=== PATIENT | male | born 2000 | race Two or more races ===

== ENCOUNTER 2023-11-29 14:01 | Emergency (ER) | payer MEDICAID, SELFPAY ==
--- NOTE | ~2023-11-29 | XR_ITS ---
EXAMINATION: XR CHEST CLINICAL INFORMATION: Dyspnea. COMPARISON: None available. TECHNIQUE: Frontal view of the chest was obtained. FINDINGS: The heart is normal in size. The left lung is clear. There is a subtle right lower lobe opacity for which developing infection cannot be excluded. There is no pleural effusion or pneumothorax. No acute osseous abnormality. XR/XR chest 1V IMPRESSION: Subtle right lower lobe opacity for which developing infection cannot be excluded. Electronically signed by: Enmanuel Lopez DO 11/29/2023 11:10 PM EDT
--- NOTE | 2023-11-29 14:09 | ECG_ITS ---
Test Reason : CP Blood Pressure : / mmHG Vent. Rate : 135 BPM Atrial Rate : 135 BPM P-R Int : 130 ms QRS Dur : 080 ms QT Int : 302 ms P-R-T Axes : 043 077 -21 degrees QTc Int : 453 ms Sinus tachycardia Abnormal QRS-T angle, consider primary T wave abnormality Abnormal ECG No previous ECGs available Referred By: Generic ED Physician Electronically Signed By:AMPARO URIBE
[2023-11-29 14:34] VITALS: BP 123/76; PULSE 113; RESP 16; TEMP 36.8; O2SAT 99; BMI 20.7
--- NOTE | 2023-11-29 14:34 | ED.GENADULT ---
HPI - General Adult General Chief complaint: Chest Pain Stated complaint: chest and abd pain Time Seen by Provider: 11/29/23 22:44 Source: patient and old records reviewed Mode of arrival: ambulatory Limitations: no limitations History of Present Illness ED Provider: CANDICE BENDER narrative: 23 yo male hx of anxiety has not been on his zoloft or atarax in a couple of months or spoken to his therapist. He notes over the past 4 days he has central chest pain, anxiety, dyspnea and he has some loose stools. No fevers, URI symptoms, travel or procedures. He notes he is under a lot of stress right now. He is able to eat and drink. He has no other complaints. He hasn't had symptoms this bad in the past. MD complaint: chest pain Onset (ago): day(s) (4) Location: chest and abdomen Radiation: non-radiation Severity: moderate Quality: aching Pain Consistency: intermittent Relieving factors: none Exacerbating factors: other (stress) Associated symptoms: shortness of breath Treatments prior to arrival: none Related Data Previous Rx's ?Medication ?Instructions ?Recorded amoxicillin 875 mg-potassium 1 tab PO BID #14 tabs 11/29/23 clavulanate 125 mg tablet hydroxyzine HCl 25 mg tablet 25 mg PO Q8H PRN anxiety #60 tabs 11/29/23 Allergies Allergy/AdvReac Type Severity Reaction Status Date / Time No Known Allergies Allergy Verified 11/29/23 14:35 Review of Systems Review of Systems: Constitutional : No Weight loss, No Fever, No Chills ENT/Mouth : No sore throat, No Rhinorrhea Eyes: No Eye Pain, No Swelling Cardiovascular : pos Chest Pain, pos SOB, no Dyspnea on Exertion, No Orthopnea, No Edema, No Palpitations Respiratory : No Cough, No Sputum Gastrointestinal : no Nausea, No Vomiting, No Diarrhea, No abdominal Pain, No Hematochezia, No Melena Genitourinary : No Dysuria, No Urinary Frequency Musculoskeletal : No joint pain, No Myalgias, No Joint Swelling Skin : No Skin Lesions, No rash Neuro : No Weakness, No Numbness, No Dizziness, No Headache Psych : pos Anxiety/Panic, No Depression Heme/Lymph: No Bruising, No Lymphadenopathy Endocrine : No Polyuria, No Polydipsia All other systems reviewed and are negative [facility] Past Medical History Attestation statement: The following information was validated with the patient. Source: old records reviewed Medical History Anxiety Social History Social History (Updated 11/29/23 @ 22:49 by Malaika Talamantes DO) Patient Tobacco Use Status: Never used Tobacco Advance Directives: No Advance Directives Information Provided: No Physical Exam ED Vital Signs: Vital Signs - 24 hr 11/29/23 14:34 Temperature 98.2 F Pulse Rate 113 H Respiratory Rate 16 Blood Pressure 123/76 Pulse Oximetry 99 Oxygen Delivery Method Room Air BMI result Body Mass Index 20.7 Appearance: Alert. Oriented X3. No acute distress. Eyes: Pupils equal, round and reactive to light. ENT: Pharynx normal. Neck: Normal inspection. Neck supple. CVS: Normal heart rate and rhythm. Pulses normal. Respiratory: No respiratory distress. Breath sounds normal. Abdomen: Soft and nontender. Skin: Skin warm and dry. Normal skin color. Normal skin turgor. Extremities: No lower extremity edema. No calf ttp Neuro: Oriented X 3. No motor deficit. No sensory deficit. Course Course Course Narrative: RME performed by Yu Ramachandran PA-C. Patient is a 23 year old assigned male at presenting to the emergency department with chest and abdominal pain. Patient states over the last 4 days he has had central chest pain and epigastric pain. Detailed physical exam and review of systems are deferred to the client advisor. EKG, labs, and swabs ordered. Patient placed back in the waiting room pending room availability and results. Medical Decision Making Medical Decision Making [facility] Narrative: 23 yo male with PMH of anxiety here with c/o chest pain feeling anxiety and short of breath he denies URI symptoms he is overall not toxic. No signs of DVT, distal pulses intact low prob VTE, given pulses intact and atypical pain doubt dissection. At this time will need trop, EKG, CXR, ddimer if negative restart him on his medications Differential Diagnosis Differential Diagnoses: The differential diagnosis associated with the presentation includes anxiety, atypical chest pain, low susp VTE Admission/Observation Consideration of admission/observation: Escalation of care including admission/observation considered negative workup no acute findings stable for DC possible early pneumonia Lab Data [facility] Lab Attestation statement: I reviewed the patient's lab results. 11/29/23 15:14 11/29/23 15:14 Labs: Lab Results 11/29/23 11/29/23 Range/Units 15:14 23:10 WBC 9.7 (4.8-10.8) X10*3/uL RBC 4.61 (4.60-5.80) X10*6/uL Hgb 14.1 (14.0-18.0) g/dl Hct 40.6 L (42.0-52.0) % MCV 88.1 (80.0-98.0) fL MCH 30.6 (27.0-33.0) pg MCHC 34.7 (31.0-36.0) g/dl RDW 11.9 (11.0-16.0) % Plt Count 192 (160-400) X10*3/uL MPV 10.3 (9.4-12.4) fL Immature Gran % (Auto) 0.7 H (0.0-0.4) % Neut % (Auto) 76.0 H (45-73) % Lymph % (Auto) 17.0 L (20-40) % Rooks % (Auto) 5.9 (2-11) % Eos % (Auto) 0.1 (0-4) % Baso % (Auto) 0.3 (0-2) % Lymph # (Auto) 1.7 (1.2-4.9) X10*3/uL [place]ook[place] # (Auto) 0.6 (0.1-1.2) X10*3/uL Eos # (Auto) 0.0 (0.0-0.4) X10*3/uL Baso # (Auto) 0.0 (0.0-0.2) X10*3/uL Abs Immat Gran (auto) 0.07 H (0.00-0.03) X10*3/uL Absolute Neuts (auto) 7.4 (2.0-8.3) x10*3/uL Absolute Nucleated RBC 0.000 (0.0-0.012) X10*3/uL Nucleated RBC % (auto) 0.0 (0.0-0.2) /100WBC D-Dimer High Sensitivty < 150 NG/ML Sodium 142 (135-145) mmol/L Potassium 4.2 (3.3-5.1) mmol/L Chloride 107 (96-108) mmol/L Carbon Dioxide 26 (22-29) mmol/L Anion Gap 13 (12-20) BUN 12 (9-16) mg/dL Creatinine 1.04 (0.5-1.4) mg/dL Estim Creat Clear Calc 88.2 Estimated GFR > 60 Random Glucose 125 H (60-115) mg/dL Calcium 10.3 H (8.4-10.2) mg/dL Magnesium 1.8 (1.6-2.6) mg/dL Total Bilirubin 0.7 (0.0-1.0) mg/dL AST 12 (5-37) U/L ALT 8 (0-40) U/L Alkaline Phosphatase 54 (39-117) U/L Troponin I High Sens < 2.7 (<3.5-35.0) ng/L Total Protein 8.2 H (6.5-8.0) g/dL Albumin 5.1 H (3.5-5.0) g/dL Lipase 10 (8-78) U/L Influenza Type A (PCR) NEGATIVE (Negative) Influenza Type B (PCR) NEGATIVE (Negative) RSV RNA Qual (PCR) NEGATIVE (Negative) SARS-CoV-2 RNA (RT-PCR) NEGATIVE (Negative) Independent Interpretation I performed an independent interpretation of an: EKG and Plain X-Ray (opacity RLL) Interpretation: Rate: 135 Rhythm: sinus tachycardia [place]: normal Normal P waves. Normal RAMA. Normal QRS complex. ST T wave : normal no SHIRLEY qTC: 453 prior studies: no acute ischemia The study has been interpreted contemporaneously by me. . Radiology Impression Discussion of test interpretation with radiology: I have reviewed the radiologist's reading. External Record Review External record reviewed: Outpatient record Prescription Management I considered prescription management with: Antibiotic and Other Discharge Plan Discharge Clinical Impression: Atypical chest pain, Anxiety Pneumonia Qualifiers: Pneumonia type: due to unspecified organism Laterality: right Lung location: lower lobe of lung Qualified Code(s): J18.9 - Pneumonia, unspecified organism Patient Disposition: Home, Self-Care Instructions: Chest Pain (ED), Anxiety (ED), Pneumonia (ED) Additional Instructions: labs, EKG reassuring small focal area of possible early pneumonia on right lung - finish antibiotics follow up with your doctor and therapist return for any worsening symptoms or concerns remember with any new medication if you have thoughts of self harm seek immediate medical care On amoxicillin-clavulanate, softer bowel movements are to be expected. Call your provider if you move your bowels more than 4 times a day, your bowel movements are almost all liquid, or you get a rash.? Prescriptions: New amoxicillin-pot clavulanate 875-125 mg tablet 1 tab PO BID Qty: 14 0RF hydroxyzine HCl 25 mg tablet 25 mg PO Q8H PRN (Reason: anxiety) Qty: 60 1RF Stand Alone Forms: Work/School Release Print Language: Prydeinig
[2023-11-29 15:23] LABS: MANUAL DIFF FLAG NO
[2023-11-29 15:31] LABS: Basophils Percent Auto 0.3 % (0-2); Eosinophils Percent Auto 0.1 % (0-4); Hematocrit 40.6 % (42.0-52.0); Hemoglobin 14.1 g/dl (14.0-18.0); Imm Gran Abs Auto 0.07 X10*3/uL (0.00-0.03); Imm Gran Pct Auto 0.7 % (0.0-0.4); Lymphocytes Absolute Auto 1.7 X10*3/uL (1.2-4.9); Mean Corpuscular HGB Conc 34.7 g/dl (31.0-36.0); Mean Corpuscular Hemoglobin 30.6 pg (27.0-33.0); Mean Corpuscular Volume 88.1 fL (80.0-98.0); Mean Platelet Volume 10.3 fL (9.4-12.4); Monocytes Absolute Auto 0.6 X10*3/uL (0.1-1.2); Monocytes Percent Auto 5.9 % (2-11); Neutrophils Absolute Auto 7.4 x10*3/uL (2.0-8.3); Platelet Count 192 X10*3/uL (160-400); Red Blood Count 4.61 X10*6/uL (4.60-5.80); Red Cell Distribution Width 11.9 % (11.0-16.0); White Blood Count 9.7 X10*3/uL (4.8-10.8)
[2023-11-29 15:43] LABS: Alanine Aminotransferase 8 U/L (0-40); Albumin Level 5.1 g/dL (3.5-5.0); Alkaline Phosphatase 54 U/L (39-117); Anion Gap 13 (12-20); Aspartate Amino Transferase 12 U/L (5-37); Bilirubin Total 0.7 mg/dL (0.0-1.0); Blood Urea Nitrogen 12 mg/dL (9-16); Calcium 10.3 mg/dL (8.4-10.2); Carbon Dioxide 26 mmol/L (22-29); Chloride 107 mmol/L (96-108); Creatinine Clr Calc Pharmacy 88.2; Estimated Glomerular Filt Rate > 60; Glucose Random 125 mg/dL (60-115); Lipase 10 U/L (8-78); Magnesium 1.8 mg/dL (1.6-2.6); Potassium 4.2 mmol/L (3.3-5.1); Sodium 142 mmol/L (135-145); Total Protein 8.2 g/dL (6.5-8.0)
[2023-11-29 15:57] LABS: Troponin-I High Sensitivity < 2.7 ng/L (<3.5-35.0)
[2023-11-29 16:17] LABS: Influenza A PCR NEGATIVE (Negative); Influenza B PCR NEGATIVE (Negative); Resp Syncy Virus RNA Qual PCR NEGATIVE (Negative); SARS COV2 PCR INHOUSE NEGATIVE (Negative)
[2023-11-29 23:28] LABS: D Dimer High Sensitivity < 150 NG/ML
[2023-11-29] MEDS: Amoxicillin/Potassium Clav 875 MG TABLET PO (23:47)
[2023-11-29] MEDS: hydrOXYzine HCL 50 MG TABLET PO (23:47)
[2023-11-29 23:48] VITALS: BP 111/68; PULSE 80; RESP 19; TEMP 36.8; O2SAT 96
[2023-11-29 23:51] VITALS: BP 111/68; PULSE 80; RESP 19; TEMP 36.8; O2SAT 96
== END 2023-11-29 23:52 | disposition home or self-care (01) ==
PROVIDERS: Physician Assistant Medical; Emergency Provider Emergency Medicine
DX: J18.9 Pneumonia, unspecified organism (principal); R07.9 Chest pain, unspecified; F41.9 Anxiety disorder, unspecified; R06.00 Dyspnea, unspecified; R10.9 Unspecified abdominal pain; Z03.818 Encounter for observation for suspected exposure to other biological agents ruled out
CPT/HCPCS: 0241U; 36415; 71045; 80053; 83690; 83735; 84484; 85025; 85379; 93005; 99283

== ENCOUNTER 2023-12-20 11:45 | Emergency (ER) | payer MEDICAID, SELFPAY ==
[2023-12-20 11:59] VITALS: BP 114/69; PULSE 135; RESP 20; TEMP 36.5; O2SAT 99; BMI 22.0
--- NOTE | 2023-12-20 12:03 | ED_ITS ---
HPI - Male Genitourinary General Chief complaint: Back Pain/Injury Stated complaint: R flank pain Time Seen by Provider: 12/20/23 13:59 Source: patient Mode of arrival: ambulatory Limitations: no limitations History of Present Illness ED Provider: Cristobal Nelson PA-C HPI Narrative: 23 yo male presenting to the ER for evaluation of right flank pain for the last 3 days. Pain comes and goes, worse with movement. No injury or heavy lifting. He denies any radiation of the pain. No N/V/D, abdominal pain, hematuria, urgency or frequency. He has had intermittent clear penile discharge after urination for the last month. sexually active with 1 partner and not concerned for STI. he reports some relief with exedrin. no fever or chills. MD Complaint: other (flank pain) Onset (ago): day(s) (3) Duration: intermittent Location: right flank Severity: severe Severity scale (1-10): 8 Quality: aching Relieving factors: medication Exacerbating factors: palpation and movement Associated symptoms: Reports discharge Related Data Sexually active: Yes Previous Rx's ?Medication ?Instructions ?Recorded amoxicillin 875 mg-potassium 1 tab PO BID #14 tabs 11/29/23 clavulanate 125 mg tablet hydroxyzine HCl 25 mg tablet 25 mg PO Q8H PRN anxiety #60 tabs 11/29/23 cyclobenzaprine 10 mg tablet 10 mg PO TID PRN muscle spasm #10 12/20/23 tabs ibuprofen 600 mg tablet 600 mg PO Q8H PRN pain #14 tabs 12/20/23 lidocaine 5 % topical patch 1 patch topical DAILY #15 ea 12/20/23 Allergies Allergy/AdvReac Type Severity Reaction Status Date / Time No Known Allergies Allergy Verified 12/20/23 12:04 Review of Systems 2 Review of Systems: Yes all other systems are reviewed and are negative [facility] Past Medical History Medical History Anxiety Social History Social History (Updated 11/29/23 @ 22:49 by Malaika Talamantes DO) Patient Tobacco Use Status: Never used Tobacco Advance Directives: No Advance Directives Information Provided: No Do you have a plan to hurt others: No Plan Physical Exam 2 Vital Signs: Vital Signs: Last Vital Signs Temp 97.8 F 12/20/23 14:22 Pulse 99 12/20/23 14:22 Resp 16 12/20/23 14:22 BP 106/67 12/20/23 14:22 Pulse Ox 96 12/20/23 14:22 O2 Del Method Room Air 12/20/23 14:22 BMI result Body Mass Index 22.0 Appearance: Alert. Oriented X3. No acute distress. Head: normocephalic, atraumatic. Eyes: Pupils equal, round and reactive to light. ENT: Pharynx normal. No tonsillar swelling or exudate. Neck: Normal inspection. Neck supple. CVS: Normal heart rate and rhythm. Pulses normal. Respiratory: No respiratory distress. Breath sounds normal. Abdomen: Soft and nontender. +BS x4. +CVA tenderness on the right side Skin: Skin warm and dry. Normal skin color. Normal skin turgor. No rashes. Extremities: No lower extremity edema. No joint swelling. Neuro/psych: Oriented X 3. No motor deficit. No sensory deficit. CN II-XII intact. Normal speech and cognition. Course Course Course Narrative: This is an RME: Additional HPI, ROS, PE not included below will be deferred to primary provider. RME assessment and note performed by: Gabrielle Weir PA-C This is a [id number]-male who presents to the ER with complaints of right flank pain x 3 days. He also admits to having clear discharge from his penis for ?awhile?. Denies any on protected sex. History of UTI 3 years ago. No urinary symptoms. No injury, heavy lifting, or falls. Patient tachycardic at 135bpm patient reports that he walked here. No chest pain or shortness of breath. Plan: labs, ua, further ER eval needed Medications Administered Discontinued Medications Generic Name Dose Route Start Last Admin Trade Name Freq PRN Reason Stop Dose Admin Acetaminophen 975 mg 12/20/23 15:08 12/20/23 15:13 Acetaminophen 325 Mg Tablet PO 12/20/23 15:09 975 mg ONCE ONE Administration Cyclobenzaprine HCl 10 mg 12/20/23 15:08 12/20/23 15:14 Cyclobenzaprine Hcl 10 Mg Tablet PO 12/20/23 15:09 10 mg ONCE ONE Administration Lidocaine 1 patch 12/20/23 15:08 12/20/23 15:14 Lidocaine 4 % Patch Adh..Patch TRANSDERMA 12/20/23 15:09 1 patch ONCE ONE Administration Protocol Medical Decision Making Medical Decision Making [facility] Narrative: 23 yo male presenting with right flank pain x3 days. no urinary symptoms but reports occasional clear penile discharge. no new sexual partners. tachycardic on arrival. No N/V/D or abdominal pain. repeat VS are improved without intervention. normal renal function, UA negative for infection and blood. lower suspicion for kidney stone treated for MSK pain with flexeril and lidoderm with improvement in his pain comfortable w/ discharge home with treatment for muscular back pain. he would like to defer STI treatment for now, will call if positive. return precautions discussed. Differential Diagnosis Differential Diagnoses: The differential diagnosis associated with the presentation includes kidney stone, pyelonephritis, STI, MSK pain Lab Data [facility] Lab Attestation statement: I reviewed the patient's lab results. no leukocytosis, normal renal function, normal UA 12/20/23 12:21 12/20/23 12:21 Labs: Lab Results 12/20/23 12/20/23 Range/Units 12:21 14:49 WBC 10.1 (4.8-10.8) X10*3/uL RBC 4.41 L (4.60-5.80) X10*6/uL Hgb 13.4 L (14.0-18.0) g/dl Hct 38.7 L (42.0-52.0) % MCV 87.8 (80.0-98.0) fL MCH 30.4 (27.0-33.0) pg MCHC 34.6 (31.0-36.0) g/dl RDW 12.6 (11.0-16.0) % Plt Count 208 (160-400) X10*3/uL MPV 9.4 (9.4-12.4) fL Immature Gran % (Auto) 0.4 (0.0-0.4) % Neut % (Auto) 76.3 H (45-73) % Lymph % (Auto) 14.0 L (20-40) % [place] % (Auto) 8.7 (2-11) % Eos % (Auto) 0.2 (0-4) % Baso % (Auto) 0.4 (0-2) % Lymph # (Auto) 1.4 (1.2-4.9) X10*3/uL [place] # (Auto) 0.9 (0.1-1.2) X10*3/uL Eos # (Auto) 0.0 (0.0-0.4) X10*3/uL Baso # (Auto) 0.0 (0.0-0.2) X10*3/uL Abs Immat Gran (auto) 0.04 H (0.00-0.03) X10*3/uL Absolute Neuts (auto) 7.7 (2.0-8.3) x10*3/uL Absolute Nucleated RBC 0.000 (0.0-0.012) X10*3/uL Nucleated RBC % (auto) 0.0 (0.0-0.2) /100WBC Sodium 140 (135-145) mmol/L Potassium 4.3 (3.3-5.1) mmol/L Chloride 105 (96-108) mmol/L Carbon Dioxide 26 (22-29) mmol/L Anion Gap 13 (12-20) BUN 11 (9-16) mg/dL Creatinine 1.00 (0.5-1.4) mg/dL Estim Creat Clear Calc 106.8 Estimated GFR > 60 Random Glucose 103 (60-115) mg/dL Calcium 10.1 (8.4-10.2) mg/dL Total Bilirubin 0.6 (0.0-1.0) mg/dL Direct Bilirubin 0.2 (0.0-0.5) mg/dL AST 15 (5-37) U/L ALT 15 (0-40) U/L Alkaline Phosphatase 51 (39-117) U/L Total Protein 7.8 (6.5-8.0) g/dL Albumin 4.8 (3.5-5.0) g/dL Urine Color Yellow Urine Appearance Clear Urine pH 8.5 (5.0-9.0) Ur Specific [place] 1.015 (1.005-1.025) Urine Protein Negative (Neg-Trace) mg/dL Urine Glucose (UA) Negative (Negative) mg/dL Urine Ketones Negative (Negative) mg/dL Urine Blood Negative (Negative) Urine Nitrite Negative (Negative) Ur Leukocyte Esterase Negative (Negative) External Record Review External record reviewed: Outpatient record and Prior outpatient labs Tests considered The following testing was considered but not selected: considered CT scan of the abdomen/pelvis Prescription Management I considered prescription management with: Pain Medication Critical Care Time Critical Care Time Critical Care Time: No Discharge Plan Discharge Clinical Impression: Strain of lumbar region Patient Disposition: Home, Self-Care Instructions: Acute Low Back Pain (ED) Additional Instructions: your lab workup and urine test today were reassuring IF you test positive for gonorrhea or chlamydia we will call you Your pain is most likely due to muscle strain and spasm. Limit bending, lifting or twisting. Use ice several times per day for 20 minutes at a time for the next 48 hours and then change to heat. Take medications as prescribed to help with pain and discomfort. Follow up with your Primary Care Doctor this week. If your pain worsens, if you develop new numbness, tingling, weakness, loss of function or incontinence call 911 or come back to the ER right away for evaluation. Prescriptions: New cyclobenzaprine 10 mg tablet 10 mg PO TID PRN (Reason: muscle spasm) Qty: 10 0RF ibuprofen 600 mg tablet 600 mg PO Q8H PRN (Reason: pain) Qty: 14 0RF lidocaine 5 % adhesive patch,medicated 1 patch topical DAILY Qty: 15 0RF Rx Instructions: leave on most painful area for up to 12 hrs No Action amoxicillin-pot clavulanate 875-125 mg tablet 1 tab PO BID Qty: 14 0RF hydroxyzine HCl 25 mg tablet 25 mg PO Q8H PRN (Reason: anxiety) Qty: 60 1RF Print Language: Singaporean
--- NOTE | 2023-12-20 12:07 | ECG_ITS ---
Test Reason : tachycardia Blood Pressure : / mmHG Vent. Rate : 125 BPM Atrial Rate : 125 BPM P-R Int : 140 ms QRS Dur : 080 ms QT Int : 298 ms P-R-T Axes : 029 070 013 degrees QTc Int : 430 ms Sinus tachycardia Otherwise normal ECG When compared with ECG of 29-NOV-2023 14:09, No significant change was found Referred By: Gabrielle Weir Electronically Signed By:AGUSTIN LOPES
[2023-12-20 12:24] LABS: MANUAL DIFF FLAG NO
[2023-12-20 12:33] LABS: Basophils Percent Auto 0.4 % (0-2); Eosinophils Percent Auto 0.2 % (0-4); Hematocrit 38.7 % (42.0-52.0); Hemoglobin 13.4 g/dl (14.0-18.0); Imm Gran Abs Auto 0.04 X10*3/uL (0.00-0.03); Imm Gran Pct Auto 0.4 % (0.0-0.4); Lymphocytes Absolute Auto 1.4 X10*3/uL (1.2-4.9); Mean Corpuscular HGB Conc 34.6 g/dl (31.0-36.0); Mean Corpuscular Hemoglobin 30.4 pg (27.0-33.0); Mean Corpuscular Volume 87.8 fL (80.0-98.0); Mean Platelet Volume 9.4 fL (9.4-12.4); Monocytes Absolute Auto 0.9 X10*3/uL (0.1-1.2); Monocytes Percent Auto 8.7 % (2-11); Neutrophils Absolute Auto 7.7 x10*3/uL (2.0-8.3); Neutrophils Percent Auto 76.3 % (45-73); Platelet Count 208 X10*3/uL (160-400); Red Blood Count 4.41 X10*6/uL (4.60-5.80); Red Cell Distribution Width 12.6 % (11.0-16.0); White Blood Count 10.1 X10*3/uL (4.8-10.8)
[2023-12-20 12:39] LABS: Alanine Aminotransferase 15 U/L (0-40); Albumin Level 4.8 g/dL (3.5-5.0); Alkaline Phosphatase 51 U/L (39-117); Anion Gap 13 (12-20); Aspartate Amino Transferase 15 U/L (5-37); Bilirubin Direct 0.2 mg/dL (0.0-0.5); Bilirubin Total 0.6 mg/dL (0.0-1.0); Blood Urea Nitrogen 11 mg/dL (9-16); Calcium 10.1 mg/dL (8.4-10.2); Carbon Dioxide 26 mmol/L (22-29); Chloride 105 mmol/L (96-108); Creatinine Clr Calc Pharmacy 106.8; Estimated Glomerular Filt Rate > 60; Glucose Random 103 mg/dL (60-115); Potassium 4.3 mmol/L (3.3-5.1); Sodium 140 mmol/L (135-145); Total Protein 7.8 g/dL (6.5-8.0)
[2023-12-20 14:22] VITALS: BP 106/67; PULSE 99; RESP 16; TEMP 36.6; O2SAT 96
--- NOTE | 2023-12-20 14:23 | PC.NURSE ---
pt a&ox3, [place] [facility] [place] pt c/o rt flank/back pain, took excedrin at home without relief, vss, pt needs to give urine sample, awaiting provider, will continue plan of care
[2023-12-20 14:55] LABS: Appearance Urine Clear; Color Urine Yellow; Glucose Urine UA Negative (Negative); Leukocyte Esterase Urine Negative (Negative); Nitrite Urine Negative (Negative); PH 8.5 (5.0-9.0); Specific Gravity - Urine 1.015 (1.005-1.025); Urine Blood Negative (Negative); Urine Ketones Negative (Negative); Urine Protein Negative (Neg-Trace)
[2023-12-20] MEDS: Acetaminophen 325 MG TABLET 975 MG PO (15:13)
[2023-12-20] MEDS: Lidocaine 4 % Patch ADH..PATCH 1 PATCH TRANSDERMA (15:14)
[2023-12-20] MEDS: Cyclobenzaprine HCl 10 MG TABLET PO (15:14)
--- NOTE | 2023-12-20 15:16 | PC.NURSE ---
pt medicated for 9 rt flank pain
[2023-12-20 16:10] VITALS: BP 108/68; PULSE 98; RESP 16; TEMP 36.6; O2SAT 96
[2023-12-20 16:11] VITALS: BP 108/68; PULSE 98; RESP 16; TEMP 36.6; O2SAT 96
[2023-12-20 16:24] LABS: CT PCR NOT DETECTED (Not Detect.); NG PCR NOT DETECTED (Not Detect.)
== END 2023-12-20 16:12 | disposition home or self-care (01) ==
PROVIDERS: Physician Assistant Medical; Emergency Provider Emergency Medicine
DX: S39.012A Strain of muscle, fascia and tendon of lower back, initial encounter (principal); R00.0 Tachycardia, unspecified; X58.XXXA Exposure to other specified factors, initial encounter; Y93.9 Activity, unspecified; Y92.89 Other specified places as the place of occurrence of the external cause; Y99.8 Other external cause status; Z79.899 Other long term (current) drug therapy
CPT/HCPCS: 36415; 80048; 80076; 81003; 85025; 87491; 87591; 93005; 99283; 99284

== ENCOUNTER → 2023-12-20 12:07 | Outpatient (BNV) | payer MEDICAID, SELFPAY | PROVIDERS: Emergency Provider Emergency Medicine; Visit Provider Internal Medicine | DX: R00.0 Tachycardia, unspecified (principal) | CPT/HCPCS: 93010 ==

== ENCOUNTER 2024-11-26 14:39 | Emergency (ER) | payer MEDICAID, SELFPAY ==
--- NOTE | ~2024-11-26 | XR_ITS ---
CLINICAL HISTORY: cough 1 wk 2 view chest x-ray Comparison: CR/SR - XR CHEST 1 VIEW - 11/29/23 22:38 EDT Findings: The lungs are clear. Normal size heart. No acute fracture. IMPRESSION: 1. No acute findings. This document has been electronically signed by: Nazanin Waters MD on 11/26/2024 15:50:45
--- NOTE | 2024-11-26 14:42 | ECG_ITS ---
Test Reason : CHEST PAIN Blood Pressure : */* mmHG Vent. Rate : 121 BPM Atrial Rate : 121 BPM P-R Int : 132 ms QRS Dur : 84 ms QT Int : 310 ms P-R-T Axes : 45 80 37 degrees QTcB Int : 440 ms Sinus tachycardia Otherwise normal ECG When compared with ECG of 20-Dec-2023 12:10, No significant change was found Referred By: Evette Naylor Electronically Signed By: Deep Up
[2024-11-26 14:58] VITALS: BP 119/73; PULSE 107; RESP 16; TEMP 36.8; O2SAT 98; BMI 20.6
--- NOTE | 2024-11-26 14:58 | ED_ITS ---
HPI - General Adult General Chief complaint: Upper Respiratory Symptoms Stated complaint: CP Time Seen by Provider: 11/26/24 19:54 Source: patient Limitations: no limitations History of Present Illness ED Provider: Maricruz Ellington PA-C HPI narrative: 24-year-old male with a history of asthma presents with cough and cold symptoms x1 week. Associated cough that has dry repetitive, wheezing at times, nasal congestion. Denies fever, chest pain shortness of breath, denies known sick contacts with similar symptoms. Related Data Previous Rx's ?Medication ?Instructions ?Recorded amoxicillin 875 mg-potassium 1 tab PO BID #14 tabs clavulanate 125 mg tablet hydroxyzine HCl 25 mg tablet 25 mg PO Q8H PRN anxiety #60 tabs 11/29/23 cyclobenzaprine 10 mg tablet 10 mg PO TID PRN muscle s pasm #10 12/20/23 tabs ibuprofen 600 mg tablet 600 mg PO Q8H PRN pain #14 t abs 12/20/23 lidocaine 5 % topical patch 1 patch topical DAILY #15 ea 12/20/23 albuterol sulfate 90 mcg/actuation 2 puff inhalation Q 4-6H PRN 11/26/24 aerosol inhaler (Ventolin HFA) shortness of breath or wheezing #6.7 grams prednisone 20 mg tablet 40 mg (2 x 20 mg) PO DAILY # 8 tabs 11/26/24 Allergies Allergy/AdvReac Type Severity Reaction Status Date / Time No Known Allergies Allergy Verified 11/26/24 14:59 Review of Systems Review of Systems: Yes all other systems are reviewed and are negative Constitutional: Constitutional: Denies fatigue and Denies fever(s) ENT: Reports nasal congestion Cardiovascular: Cardiovascular: Denies chest pain and Denies dyspnea Respiratory: Respiratory: Denies chest congestion, Reports cough, Denies dyspnea and Reports wheezing Endocrine: Endocrine: Denies fatigue Allergic/Immunologic: Allergic/Immunologic: Reports wheezing PMFSH Past Medical History Attestation statement: The following information was validated with the patient. Medical History Anxiety Social History Social History (Updated 11/29/23 @ 22:49 by Malaika Talamantes DO) Patient Tobacco Use Status: Never used Tobacco Advance Directives: No Advance Directives Information Provided: No Physical Exam ED Vital Signs: Vital Signs - 24 hr 11/26/24 14:58 Temperature 98.2 F Pulse Rate 107 H Respiratory Rate 16 Blood Pressure 119/73 Pulse Oximetry 98 Oxygen Delivery Method Room Air BMI result Body Mass Index 20.6 Const Other: Alert well-appearing Orientation/consciousness: patient oriented x3 Resp Other: Nonlabored respirations, occasional expiratory wheeze posterior isidro Cardio Other: Normal peripheral perfusion Skin Other: Warm dry no rash Neuro General: patient oriented x3, gait normal, no focal motor deficits and CN's II- XI intact bilaterally Psych Other: Cooperative Course Course Course Narrative: This is a rapid medical exam performed by Johny Naylor NP: Additional HPI, ROS, PE not included below will be deferred to primary provider. Patient is a 24-year-old male presenting to the ED with complaint of congestion, cough, chest pain with coughing x 1 week. Plan: viral swabs Medical Decision Making Medical Decision Making [facility] Narrative: 24-year-old male with a history of asthma presents with cough and cold symptoms x1 week. Associated cough that has dry repetitive, wheezing at times, nasal congestion. Denies fever, chest pain shortness of breath, denies known sick contacts with similar symptoms. Problem: Asthma History: Per patient I have considered the following differential diagnoses: Viral syndrome, asthma exacerbation, bronchitis, pneumonia Plan: Patient here with a viral syndrome with very mild symptoms of asthma. Viral panel negative, chest x-ray negative, we will treat for mild asthma exacerbation I have independently reviewed the following tests: Labs: Viral panel negative CXR: indings: The lungs are clear. Normal size heart. No acute fracture. IMPRESSION: 1. No acute findings. Differential Diagnosis Differential Diagnoses: The differential diagnosis associated with the presentation includes See medical decision-making Admission/Observation Consideration of admission/observation: Escalation of care including admission/observation considered Not applicable Lab Data [facility] Lab Attestation statement: I reviewed the patient's lab results. Labs: Lab Results 11/26/24 Range/Units 15:50 COVID-19 (MARTI) Negative (Negative) COVID-19 Clin Com See Note Influenza Type A (CATHY) Negative (Negative) Influenza Type B (CATHY) Negative (Negative) Influenza A & B Note See Note Radiology Impression Discussion of test interpretation with radiology: I have reviewed the radiologist's reading. Discharge Plan Discharge Clinical Impression: Asthma exacerbation, Viral infection Patient Disposition: Home, Self-Care Instructions: Asthma (ED), Viral Syndrome (ED) Additional Instructions: The chest x-ray was negative for pneumonia, you were tested for COVID and influenza, the viral panel was negative. You likely have yet another respiratory virus has been circulating within the community, causing your asthma exacerbation. See home care instructions. Use your inhaler as needed, take the steroid as directed. Follow up with primary care as needed. Prescriptions: New prednisone 20 mg tablet 40 mg PO DAILY Qty: 8 0RF albuterol sulfate [Ventolin HFA] 90 mcg/actuation HFA aerosol inhaler 2 puff inhalation Q4-6H PRN (Reason: shortness of breath or wheezing) Qty: 6.7 0RF No Action amoxicillin-pot clavulanate 875-125 mg tablet 1 tab PO BID Qty: 14 0RF hydroxyzine HCl 25 mg tablet 25 mg PO Q8H PRN (Reason: anxiety) Qty: 60 1RF cyclobenzaprine 10 mg tablet 10 mg PO TID PRN (Reason: muscle spasm) Qty: 10 0RF ibuprofen 600 mg tablet 600 mg PO Q8H PRN (Reason: pain) Qty: 14 0RF lidocaine 5 % adhesive patch,medicated 1 patch topical DAILY Qty: 15 0RF Rx Instructions: leave on most painful area for up to 12 hrs Stand Alone Forms: Work/School Release Print Language: [place]
--- OUTSIDE RECORDS SUMMARY | 2024-11-26 15:56 | XMS_ITS | Clinical Summary ---
Author Organization [facility] Address [address] [place] [phone] Phone Care Team Providers Care [employer] Travel Counselor Name Role Phone Jevon Doherty MD Primary Care Provider Unavailabl e Immunizations Immunization Administration Dates Next Due DTaP 5 04/16/2004, 2,2000, 001,2000 H1N1 01/28/2009 Hep B, ped/adol 01/07/2001,2000,2000 Hib (PRP-T) 07/01/2001, 1,2000, 001 IPV 04/16/2004, 1,2000, 001 MMR 04/16/2004,04/06/2001 Meningococcal Conj (Menactra) MCV4P 11/10/2012 Pneumococcal Conjugate 2000,2000, Tdap 11/10/2012 Varicella 06/15/2007,07/01/2001 Family History Relation Name Status Comments Half-Brother Alive half brother: A live and well, Alive and well Mother Alive Mother: Alive a nd well Other No family histo ry of CVA (Stroke), No family history of Sudden /AR under age 55, No family history of Heart disease, Family history of Hyperlipidemia Social History Tobacco Use Types Packs/Day Years Used Date Smoking Tobacco: Never Comments:Never smoker Sex and Gender Information Value Date Recorded Sex Assigned at Not on file Legal Sex Male 4:51 PM EDT Gender Identity Not on file Sexual Orientation Not on file Last Filed Vital Signs Vital Sign Reading Time Taken Comments Blood Pressure 93/61 05/12/2013 12:00 AM EST Pulse 86 05/12/2013 12:00 AM EST Temperature 36.8 C (98.3 F) 03/30/2013 12:00 AM EST Respiratory Rate - - Oxygen Saturation - - Inhaled Oxygen Concentration - - Weight 55.5 kg (122 lb 6.4 oz) 05/12/2013 12:00 AM EST Height 161 cm (5' 3.4 ) 05/12/2013 12:00 AM EST Body Mass Index 21.41 05/12/2013 12:00 AM EST Plan of Treatment Health Maintenance Due Date Last Done Comments HPV Vaccines (1 - Male 3-dose series) 2015 DTaP,Tdap,and Td Vaccines (7 - Td or Tdap) 11/10/2022 11/10/2012, 04/16/2004, 09/23/2001, Additional history exists Influenza Vaccines (#1) 2024 COVID-19 Vaccine (1 - season) 2024 Pneumococcal Vaccine Aged Out 2000, 2000, 2000 No longer eligible based on patient's age to complete this topic Hepatitis B Vaccines Completed 01/07/2001, 2000, 2000 HIB Vaccines Completed 07/01/2001, 03/2000, 2000, Additional history exists IPV Vaccines Completed 04/16/2004, 03/2000, 2000, Additional history exists MMR Vaccines Completed 04/16/2004, 04/06/2001 Varicella Vaccines Completed 06/15/2007, 07/01/2001 Meningococcal Vaccine Aged Out 11/10/2012 No neli mabel eligible based on patient's age to complete this topic Hepatitis A Vaccines Aged Out No long er eligible based on patient's age to complete this topic Men B Vaccine Aged Out No longer elig ible based on patient's age to complete this topic Care Teams [employer] Travel Counselor Relationship Specialty Start Date End Date Jevon Doherty MD PCP - General 10/16/16
--- OUTSIDE RECORDS SUMMARY | 2024-11-26 15:56 | XMS_ITS | Encounter Summary ---
Author Organization [facility] Address [address] [place] [address] Phone Care Team Providers Care Clerk Stenographer Name Role Phone Jevon Doherty MD Primary Care Provider Unavailabl e Encounter Details Date Type Department Care Team (Late st Contact Info) Description 10/22/2016 Conversion Encounter [facility] - [address] [id number] Social History Tobacco Use Types Packs/Day Years Used Date Smoking Tobacco: Never Comments:Never smoker Sex and Gender Information Value Date Recorded Sex Assigned at Not on file Legal Sex Male 4:51 PM EDT Gender Identity Not on file Sexual Orientation Not on file documented as of this encounter Plan of Treatment Not on file documented as of this encounter Visit Diagnoses Not on filedocumented in this encounter Care Teams Clerk Stenographer Relationship Specialty Start Date End Date Jevon Doherty MD PCP - General 10/16/16 documented as of this encounter
--- OUTSIDE RECORDS SUMMARY | 2024-11-26 15:56 | XMS_ITS | Encounter Summary ---
Author Organization [facility] Address [address] [place] [phone] Phone Care Team Providers Care Multi Craft Maintenance Technician Name Role Phone Jevon Doherty MD Primary Care Provider Unavailabl e Encounter Details Date Type Department Care Team (Late st Contact Info) Description 06/12/2009 Documentation EM Family Medicine [address] [place] [address] Family Medicine, Physician [facility] [address] [place], [place] [phone] Social History Tobacco Use Types Packs/Day Years Used Date Smoking Tobacco: Never Assessed Sex and Gender Information Value Date Recorded Sex Assigned at Not on file Legal Sex Male 4:51 PM EDT Gender Identity Not on file Sexual Orientation Not on file documented as of this encounter Plan of Treatment Not on file documented as of this encounter Visit Diagnoses Not on filedocumented in this encounter Care Teams Multi Craft Maintenance Technician Relationship Specialty Start Date End Date Jevon Doherty MD PCP - General 10/16/16 documented as of this encounter
--- OUTSIDE RECORDS SUMMARY | 2024-11-26 15:56 | XMS_ITS | Encounter Summary ---
Author Organization [facility] Address [address] [place] [phone] Phone Care Team Providers Care Television Installer Name Role Phone Jevon Doherty MD Primary Care Provider Unavailabl e Encounter Details Date Type Department Care Team (Late st Contact Info) Description 06/18/2010 Documentation EM Family Medicine [address] [place] [address] Family Medicine, Physician [facility] [address] [place], [place] [phone] Social History Tobacco Use Types Packs/Day Years [...] on filedocumented in this encounter Care Teams Television Installer Relationship Specialty Start Date End Date Jevon Doherty MD PCP - General 10/16/16 documented as of this encounter
[2024-11-26 16:17] LABS: IDNOW Serial# 6674DD1D
[2024-11-26 16:18] LABS: COVID-19 Test Negative (Negative)
[2024-11-26 16:22] LABS: IDNOW Serial# 58CA691E; Influenza B2 Negative (Negative)
[2024-11-26 20:35] VITALS: BP 107/66; PULSE 78; RESP 16; TEMP 36.7; O2SAT 97
[2024-11-26 20:36] VITALS: BP 107/66; PULSE 78; RESP 16; TEMP 36.7; O2SAT 97
== END 2024-11-26 20:36 | disposition home or self-care (01) ==
PROVIDERS: Registered Nurse Emergency; Emergency Provider Emergency Medicine; PCP Dentist General Practice
DX: J45.901 Unspecified asthma with (acute) exacerbation (principal); B34.9 Viral infection, unspecified; R07.89 Other chest pain; R05.9 Cough, unspecified; Z11.52 Encounter for screening for COVID-19; Z79.899 Other long term (current) drug therapy
CPT/HCPCS: 71046; 87502; 87635; 93005; 99283; 99284

== ENCOUNTER → 2024-11-26 14:42 | Outpatient (BNV) | payer MEDICAID, SELFPAY | PROVIDERS: Emergency Provider Emergency Medicine; PCP Dentist General Practice; Visit Provider Internal Medicine Cardiovascular Disease | DX: R00.0 Tachycardia, unspecified (principal) | CPT/HCPCS: 93010 ==

== ENCOUNTER → 2024-11-26 14:59 | Outpatient (BNV) | payer MEDICAID, SELFPAY | PROVIDERS: PCP Dentist General Practice; Visit Provider Radiology Diagnostic Radiology | DX: R05.9 Cough, unspecified (principal) | CPT/HCPCS: 71046 ==

== ENCOUNTER 2025-01-14 14:18 | Emergency (ER) | payer MEDICAID, SELFPAY ==
[2025-01-14 14:29] VITALS: PULSE 115; RESP 18; TEMP 36.6; O2SAT 98; BMI 22.3
--- NOTE | 2025-01-14 14:33 | ED_ITS ---
HPI - General Adult General Chief complaint: Urogenital-Male Stated complaint: irritated penis, tip burning sensation Time Seen by Provider: 01/14/25 15:34 Source: patient and other (patient's partner) Mode of arrival: ambulatory Limitations: no limitations History of Present Illness ED Provider: Yu Ramachandran PA-C HPI narrative: Patient is a 24 year old assigned male at with no reported medical history presenting to the emergency department today with white discharge from his penis and irritation to the tip of his penis. Patient states that over the last 2 days he has had white-jin discharge from his penis and over the last day has had some irritation at the tip of his penis. Patient denies any other complaints at this time. Related Data Previous Rx's ?Medication ?Instructions ?Recorded amoxicillin 875 mg-potassium 1 tab PO BID #14 tabs clavulanate 125 mg tablet hydroxyzine HCl 25 mg tablet 25 mg PO Q8H PRN anxiety #60 tabs 11/29/23 cyclobenzaprine 10 mg tablet 10 mg PO TID PRN muscle s pasm #10 12/20/23 tabs ibuprofen 600 mg tablet 600 mg PO Q8H PRN pain #14 t abs 12/20/23 lidocaine 5 % topical patch 1 patch topical DAILY #15 ea 12/20/23 albuterol sulfate 90 mcg/actuation 2 puff inhalation Q 4-6H PRN 11/26/24 aerosol inhaler (Ventolin HFA) shortness of breath or wheezing #6.7 grams prednisone 20 mg tablet 40 mg (2 x 20 mg) PO DAILY # 8 tabs 11/26/24 doxycycline hyclate 100 mg tablet 100 mg PO BID 7 days #14 tabs 01/14/25 metronidazole 500 mg tablet 500 mg PO BID 7 days #14 t abs 01/14/25 Allergies Allergy/AdvReac Type Severity Reaction Status Date / Time No Known Allergies Allergy Verified 01/14/25 14:31 Review of Systems Constitutional: Constitutional: Reports as per HPI Eyes: Eyes: Reports as per HPI ENT: Reports as per HPI Cardiovascular: Cardiovascular: Reports as per HPI Respiratory: Respiratory: Reports as per HPI Gastrointestinal: Gastrointestinal: Reports as per HPI Genitourinary: Genitourinary: Reports as per HPI Musculoskeletal: Musculoskeletal: Reports as per HPI Integumentary/Breasts: Skin/Breast: Reports as per HPI Neurologic: Reports as per HPI Psychiatric: Psychiatric: Reports as per HPI Endocrine: Endocrine: Reports as per HPI Hematologic/Lymphatic: Hematologic/Lymphatic: Reports as per HPI Allergic/Immunologic: Allergic/Immunologic: Reports as per HPI [facility] Past Medical History Attestation statement: The following information was validated with the patient. (patient's partner validated all information) Source: old records reviewed, nursing notes reviewed and other (patient's partner provided additional history and confirmed the history provided by the patient. ) Medical History Anxiety Social History Social History Patient Tobacco Use Status: Never used Tobacco Advance Directives: No Advance Directives Information Provided: Yes Do you have a plan to hurt others: No Plan Physical Exam ED Vital Signs: Vital Signs - 24 hr 01/14/25 14:29 Temperature 98 F Pulse Rate 115 H Respiratory Rate 18 Pulse Oximetry 98 Oxygen Delivery Method Room Air BMI result Body Mass Index 22.3 Const General: cooperative, no acute distress, alert and awake Nutritional Appearance: well nourished Orientation/consciousness: patient oriented x3 HENMT Head: Yes normal to inspection and Yes atraumatic Ears: hearing grossly normal bilaterally and external ears normal General nose exam: Normal external nose present, no nasal discharge noted and no epistaxis Face and sinus: Yes normal facial exam, No abrasion and No laceration Mouth: Normal oral and palatal mucosa present, no drooling and no muffled voice Eyes General: appearance normal, both eyes and all related structures Periorbital: periorbital findings normal Eyelids: Yes eyelids normal Conjunctivae: conjunctivae normal Pupils: Equal, round and reactive pupils present EOM: EOMs intact bilaterally Neck Neck: Yes normal visual inspection and Yes full ROM Resp Effort & Inspection: normal respiratory effort and able to speak in complete sentences Penis: uncircumcised and other (5o'clock position with smaller lesions at the 7 + 8 o'clock areas of skin) Neuro General: patient oriented x3, moves all extremities and CN's II-XI intact bi laterally Cranial nerves: Yes Equal, round and reactive pupils present Cognition (Neuro): normal cognition Extrem General: Yes normal to inspection, Yes full ROM and Yes capillary refill normal Psych Appearance: grossly normal Mental Status: mental status grossly normal Affect: normal affect Attitude: cooperative Thought process: Normal thought process present Thought content: Normal thought content present Insight: Good insight present (Psych) Course Course Course Narrative: RME: 24-year-old male presents to ED for glands hands of the penis irritation with the past couple of days with white discharge. Patient states only sexually active with a partner. Patient denies any testicular pain abdominal pain nausea or vomiting. UA CTA NG ordered Medications Administered Discontinued Medications Generic Name Dose Route Start Last Admin Trade Name Maulik PRN Reason Stop Dose Admin Ceftriaxone Sodium 500 mg/ 0 mg 01/14/25 15:50 01/14/25 16:25 Lidocaine HCl 1 ml IM 01/14/25 15:51 500 kit ONCE ONE Administration Doxycycline Monohydrate 100 mg 01/14/25 15:51 01/14/25 16:25 Doxycycline Monohydrate 100 Mg Capsule PO 01/14/25 15:52 100 mg ONCE ONE Administration Metronidazole 500 mg 01/14/25 16:20 01/14/25 16:29 Metronidazole 500 Mg Tablet PO 01/14/25 16:21 500 mg ONCE ONE Administration Medical Decision Making Medical Decision Making [facility] Narrative: Patient is a 24 year old assigned male at with no reported medical history presenting to the emergency department today with white discharge from his penis and irritation to the tip of his penis. Patient's physical exam was as noted in the physical exam portion of this note. Physical examination was performed with MARY ANNE Allison at the bed side as a clinical data analyst. Patient had multiple vesicular type lesions on the inner portion of his foreskin, concerning for herpes simplex virus. Patient had a small amount of discharge from the tip of his penis. When asked about the lesions on the foreskin of his penis during my examination, he had stated he wasn't sure how long they had been there. Patient's urine showed no acute process. Patient's CT/NG testing is pending. I explained my physical exam findings as well as all test results to the patient and with the patient's consent - the patient's partner. I confirmed with the patient twice that he was comfortable with all information being shared with him in front of his partner. He verbalized consent / understanding both times. I answered all questions asked by the patient and the patient's partner. I spent an extensive amount of time explaining to the patient that I was concerned his physical exam findings were consistent with genital herpes but given the additional discharge from the tip of his penis - I'd be treating him for infection as well. Patient became visibly upset about my clinical suspicion of herpes and asked several follow up questions. He then stated that the lesions on his foreskin I previously asked him about had always been there and lots of doctors have looked at them before and never said anything about herpes . I explained to the patient that I specifically asked him how long those lesions had been there as a means of determining if they were relevant to his current emergency department visit and he had said then he didn't know. Patient again asserted that he was positive other providers had examined them and were not concerned. At that time the patient requested that I specifically test for HSV. I explained to the patient that testing for HSV isn't perfect or routinely performed. I explained the culture of a lesion could be improperly collected and result in a false negative. I explained blood testing doesn't guarantee he is in an active outbreak but a positive blood test with his current physical examination would be confirmation of an HSV outbreak. Patient then stated that he had no further questions and he would take the medication I recommended. After several minutes, nursing informed me the patient would like a doctor's opinion on his lesions. I spoke with Dr. Tapia who went into the patient's room with me to perform another physical examination of the patient's penis. The patient at that time became somewhat agitated, again stating that no doctor ever told him anything about herpes ever and he began to become repetitive in his speaking. I explained to the patient that he doesn't have to agree with my clinical suspicion and he can decline any or all treatment for it. At that time the patient stated he did not want any anti-viral treatment but he would have treatment for a possible infection. At that time, Dr. Tapia obtained an HSV culture from the patient's penis and I placed the order on behalf of Dr. Tapia. Dr. Tapia recommended treating the patient with Doxycycline + Flagyl. Patient as given IM Ceftriaxone for STI prophylaxis given his pending CT/NG, his first dose of Doxycycline, and his first does of Flagyl. I recommended the patient follow up with a Urologist given he has had these penile skin vesicles for an unknown length of time and has never had them formally examined by an appropriate specialist. I stressed the importance of the patient taking his medication as directed (either prescribed or as the over the counter packaging recommends). I stressed the importance of the patient following up with his primary care provider and a urologist. I stressed the importance of the patient practicing in safe sex with condom use and avoiding sexual contact while he has these unidentified foreskin vesicles. I stressed the importance of the patient returning to the emergency department immediately if his symptoms were to worsen or if he were to develop any dizziness, shortness of breath, difficulty breathing, chest pain, blurry vision, loss of vision, nausea, vomiting, abdominal pain, fever, chills, back pain, or any other complaints. Patient and the patient's partner verbalized agreement and understanding with this treatment plan and discharge. Differential Diagnosis Differential Diagnoses: The differential diagnosis associated with the presentation includes HSV Genital herpes Vesicular penile lesion Chlamydia Gonorrhea UTI Admission/Observation Consideration of admission/observation: Escalation of care including admiss ion/observation considered Patient would have been admitted to the hospital had his work up had any findings where hospital admission was appropriate and his clinical presentation warranted hospital admission. Lab Data [facility] Lab Attestation statement: I reviewed the patient's lab results. My interpretation of these results are in the [facility] Rationale portion of this note. Labs: Lab Results 01/14/25 01/14/25 Range/Units 15:13 15:40 Urine Color Yellow Urine Appearance Clear Urine pH 6.5 (5.0-9.0) Ur Specific [place] >= 1.030 H (1.005-1.025) Urine Protein Trace (Neg-Trace) mg/dL Urine Glucose (UA) Negative (Negative) mg/dL Urine Ketones Trace (Negative) mg/dL Urine Blood Negative (Negative) Urine Nitrite Negative (Negative) Ur Leukocyte Esterase Trace H (Negative) Urine RBC 0-2 (0-2) /HPF Urine WBC 0-5 (0-5) /HPF Ur Squamous Epith Cells 3-5 (0-2) /HPF Urine Bacteria None Seen (None Seen) Hyaline Casts 0-2 (0-2) /LPF Ur N gonorrhoeae DNA (PCR) NOT DETECTED (Not Detect.) Ur Chlamydia DNA (PCR) NOT DETECTED (Not Detect.) Independent Historian Clinical information obtained from an independent historian. History obtained from or confirmed by: Other (patient's partner provided additional history and confirmed the history provided by the patient. ) Prescription Management I considered prescription management with: Antibiotic (patient prescribed prophylactic antibiotic) Discharge Plan Discharge Clinical Impression: Penile rash, Abnormal penile discharge Patient Disposition: Home, Self-Care Instructions: Safe Sex Practices (ED), Acute Rash (ED) Additional Instructions: Take your medication as prescribed. Engage in safe sex practices. Please consider seeing a urologist and supervisor meter shop for a specialized opinion about your penile lesions that have been present for an unknown amount of time. You have declined an anti-viral for possible herpetic outbreak. Please be aware that if these lesions are herpetic / herpes, you can spread them to others when in an active outbreak. IF you are prescribed home medications and/or you are taking over the counter medications at home - it is very important you continue to do so as prescribed / directed unless told otherwise. Follow up with a primary care provider. Return to the emergency department immediately if your symptoms worsen or if you develop any numbness, tingling, dizziness, shortness of breath, difficulty breathing, chest pain, blurry vision, loss of vision, nausea, vomiting, abdominal pain, fever, chills, back pain, or any other complaints. Please see the information below about our Patient Portal. If you are not yet enrolled in the [facility] Patient Portal, you will receive an enrollment email invitation following your visit to any [facility] care setting. You may also self-enroll in the Patient Portal by visiting our website: [email or web address] The following information is required to access the Patient Portal: - Your [facility] Medical Record Number - Your personal home email address (must match what is in your electronic medical record, Registration staff can assist with this) - Name - Date of Capabilities of the Patient Portal: - Message some providers - View upcoming appointments - Access your health summary, medical history, and visit history - View current conditions and allergies - View procedure and lab results - View your medications, including guidelines, side effects, and precautions - Complete pre-appointment questionnaires requested by your provider - Ready summary reports of your office visits and procedures To access the Patient Portal Mobile Courtney, follow these directions: - Search Fixetude in the Courtney Store or Google Play Store - Download the Courtney - Search for [facility] - Enter your login/password Prescriptions: New doxycycline hyclate 100 mg tablet 100 mg PO BID 7 Days Qty: 14 0RF metronidazole 500 mg tablet 500 mg PO BID 7 Days Qty: 14 0RF No Action prednisone 20 mg tablet 40 mg PO DAILY Qty: 8 0RF albuterol sulfate [Ventolin HFA] 90 mcg/actuation HFA aerosol inhaler 2 puff inhalation Q4-6H PRN (Reason: shortness of breath or wheezing) Qty: 6.7 0RF amoxicillin-pot clavulanate 875-125 mg tablet 1 tab PO BID Qty: 14 0RF hydroxyzine HCl 25 mg tablet 25 mg PO Q8H PRN (Reason: anxiety) Qty: 60 1RF cyclobenzaprine 10 mg tablet 10 mg PO TID PRN (Reason: muscle spasm) Qty: 10 0RF ibuprofen 600 mg tablet 600 mg PO Q8H PRN (Reason: pain) Qty: 14 0RF lidocaine 5 % adhesive patch,medicated 1 patch topical DAILY Qty: 15 0RF Rx Instructions: leave on most painful area for up to 12 hrs Referrals: [facility] [Provider Group, Urology] Referral Note: Consider following up with a urologist about your penile lesions that have been there an unknown amount of time. [facility] [Primary Care Provider, Primary Care] Discharge Date/Time: 01/14/25 16:48 Print Language: Kazakh
[2025-01-14 15:21] LABS: Appearance Urine Clear; Glucose Urine UA Negative (Negative); PH 6.5 (5.0-9.0); Specific Gravity - Urine >= 1.030 (1.005-1.025); UMIC TRIGGER UACC YES
--- OUTSIDE RECORDS SUMMARY | 2025-01-14 16:03 | XMS_ITS | Encounter Summary ---
Author Organization [facility] Address [address] [place] [phone] Phone Care Team Providers Care Die Baker Name Role Phone Jevon Doherty MD Primary Care Provider Unavailabl e Encounter Details Date Type Department Care Team (Late st Contact Info) Description 06/18/2010 Documentation EM Family Medicine [address] [place] [address] Family Medicine, Physician [facility] [address] [place], [place] [id number] Social History Tobacco Use Types Packs/Day Years [...] on filedocumented in this encounter Care Teams Die Baker Relationship Specialty Start Date End Date Jevon Doherty MD PCP - General 10/16/16 documented as of this encounter
--- OUTSIDE RECORDS SUMMARY | 2025-01-14 16:03 | XMS_ITS | Encounter Summary ---
Author Organization [facility] Address [address] [place] [address] Phone Care Team Providers Care Timers Inspector Name Role Phone Jevon Doherty MD Primary Care Provider Unavailabl e Encounter Details Date Type Department Care Team (Late st Contact Info) Description 10/22/2016 Conversion Encounter [facility] - [address] [address] Social History Tobacco Use Types Packs/Day Years [...] on filedocumented in this encounter Care Teams Timers Inspector Relationship Specialty Start Date End Date Jevon Doherty MD PCP - General 10/16/16 documented as of this encounter
--- OUTSIDE RECORDS SUMMARY | 2025-01-14 16:03 | XMS_ITS | Encounter Summary ---
Author Organization [facility] Address [address] [place] [phone] Phone Care Team Providers Care Binding Stitcher Name Role Phone Jevon Doherty MD Primary Care Provider Unavailabl e Encounter Details Date Type Department Care Team (Late st Contact Info) Description 06/12/2009 Documentation EM Family Medicine [address] [place] [address] Family Medicine, Physician [facility] [address] [place], [place] [id number] Social History Tobacco Use Types Packs/Day Years [...] on filedocumented in this encounter Care Teams Binding Stitcher Relationship Specialty Start Date End Date Jevon Doherty MD PCP - General 10/16/16 documented as of this encounter
--- OUTSIDE RECORDS SUMMARY | 2025-01-14 16:03 | XMS_ITS | Clinical Summary ---
Author Organization [facility] Address [address] [place] [phone] Phone Care Team Providers Care Production Internship Name Role Phone Jevon Doherty MD Primary [...] CVA (Stroke), No family history of Sudden /[place] under age 55, No family history of [...] age to complete this topic Care Teams Production Internship Relationship Specialty Start Date End Date Jevon Doherty MD PCP - General 10/16/16
[2025-01-14] MEDS: cefTRIAXone sodium 500 MG, Lidocaine HCl 1 % MPF 1 ML IM (16:25)
[2025-01-15 05:39] LABS: CT PCR Urine NOT DETECTED (Not Detect.); NG PCR Urine NOT DETECTED (Not Detect.)
== END 2025-01-14 16:48 | disposition home or self-care (01) ==
PROVIDERS: Physician Assistant; Physician Assistant Medical; Emergency Provider Emergency Medicine Emergency Medical Services; PCP Dentist General Practice
DX: N48.29 Other inflammatory disorders of penis (principal); R36.9 Urethral discharge, unspecified; R30.0 Dysuria; Z79.899 Other long term (current) drug therapy
CPT/HCPCS: 36415; 81001; 87255; 87491; 87591; 96372; 99284; J0696; J2003

== ENCOUNTER 2025-01-24 13:47 | Inpatient (IN) | payer OTHER, SELFPAY ==
--- OUTSIDE RECORDS SUMMARY | 2025-01-23 09:40 | XMS_ITS | Encounter Summary ---
Author Organization [employer] Address [address] [place] [address] Care Team Providers Care Engine House Helper Name Role Phone Unavailable Primary Care Provider Unavailabl e Reason for Visit * Reason Comments pain irritation in penis Encounter Details Date Type Department Care Team ([facility] st Contact Info) Description 01/23/2025 9:40 AM EST Office Visit [facility] [address] [place] [address] Marguerite Morris MD [address] [place] [address] Candidiasis (Primary Dx) Social History Tobacco Use Types Packs/Day Years Used Date Smoking Tobacco: Never Assessed Sex and Gender Information Value Date Recorded Sex Assigned at Male 01/05/2022 10:24 AM EDT Legal Sex Male 10:24 AM EDT Gender Identity Male 01/23/2025 9:23 AM EST Sexual Orientation Choose not to disclose 2024 9:23 AM EST documented as of this encounter Last Filed Vital Signs Vital Sign Reading Time Taken Comments Blood Pressure 121/78 01/23/2025 9:46 AM EST Pulse 143 01/23/2025 9:46 AM EST Temperature 35.9 C (96.6 F) 01/23/2025 9:46 AM EST Respiratory Rate 20 01/23/2025 9:46 AM EST Oxygen Saturation 98% 01/23/2025 9:46 AM EST Inhaled Oxygen Concentration - - Weight 58.1 kg (128 lb) 01/23/2025 9:46 AM EST Height - - Body Mass Index - - documented in this encounter Progress Notes * Marguerite Morris MD - 01/23/2025 9:40 AM EST Subjective Imtiaz Parker, 24 years Genital irritation and discomfort - Onset of penile irritation prior to January 14, 2025 - Presented to the emergency room at [facility] on January 14, 2025, for penile irritation - Reports persistent irritation and burning sensation in the penis area - Describes symptoms as worsening and not relieved by prior treatments - Reports discharge from the penis at the time of emergency room visit - Reports difficulty sleeping due to discomfort - Reports anxiety and panic related to the symptoms - Reports use of various soaps and body washes, including [place]inese Spring, Dove, and Dog Man body wash, prior to onset of symptoms - No relief of symptoms with antibiotics prescribed after emergency room visit - Reports that symptoms are not associated with urination (not described as dysuria) - Reports that similar irritation occurs in female partner when using soap directly on genital area Genital lesions - Reports presence of small bumps/vesicular-type lesions on the inner foreskin noted at the time ofemergency room visit - Reports that bumps are still present at the time of this encounter Medication use - Reports taking antibiotics prescribed after emergency room visit - Reports taking anxiety medications Psychological symptoms - Reports significant anxiety and panic related to genital symptoms - Reports that anxiety is exacerbated by ongoing symptoms and lack of relief Objective Blood pressure 121/78, pulse (!) 143, temperature 96.6 ??F (35.9 ??C), temperature source Oral, resp. rate 20, weight 128 lb (58.1 kg), SpO2 98%. - GENITOURINARY: Examination revealed vesicular type lesions in the inner part of the foreskin. No signs of herpes. Vesicles are considered normal. - White blood cell count 10.1 ?? 10^9/L (normal) from [facility] labs on December 20, 2023 - Urinalysis negative - Gonorrhea test not detected - Chlamydia test not detected - HSV culture not isolated - Urine glucose negative Genital irritation and vesicular lesions: - Genital irritation and vesicular lesions are not consistent with herpes. They are pearly papules of the penis and reassurance given. Bumps are normal anatomical findings. Likely etiology is irritation from scented soaps and possible superficial yeast infection. - Prescribed topical antifungal medication to be applied to the tip of the penis twice daily for one week. Recommended discontinuation of scented soaps and use of unscented sensitive skin wash (such as Vagisil or generic sensitive skin wash). Advised not to over-wash the area. No glucose on UA concerning for diabetes. Anxiety: - Anxiety exacerbated by genital symptoms and ongoing discomfort. - Advised discontinuation of unnecessary medications not providing relief. Continue current anxietymanagement as previously prescribed. This note was drafted using Ambient (AI) technology. The patient/patient's guardian has been informed and has consented to the use of this technology: Yes documented in this encounter Plan of Treatment Not on file documented as of this encounter Visit Diagnoses Diagnosis Candidiasis- Primary documented in this encounter
--- NOTE | ~2025-01-24 | CT_ITS ---
CLINICAL HISTORY: nephrolitiasis CT abdomen and pelvis without contrast Comparison: US - US RENAL BI - 01/24/25 18:04 EST Findings: No consolidation or effusion. The gallbladder and solid organs are within normal limits. No renal stones. No hydronephrosis or hydroureter. No bowel obstruction, pneumoperitoneum, or pneumatosis. Pelvic contents unremarkable. No bladder wall thickening. A tiny amount of fat is identified within the left inguinal canal superiorly. Normal appendix. No acute fracture visualized. Vacuum disc phenomenon present at L5-S1. IMPRESSION: 1. No acute inflammatory process identified within the abdomen or pelvis. No radiopaque renal calculi, hydronephrosis, or hydroureter. This document has been electronically signed by: Adonay Moscoso MD on 01/24/2025 21:13:28
--- NOTE | ~2025-01-24 | US_ITS ---
CLINICAL HISTORY: Pain on urination --- Additional Notes or Special Instructions: Renal please. Rule out hydronephrosis. US Renal Comparison: None provided Findings: Right kidney normal size and echotexture, 9.2 x 5.1 x 5.2 cm length. Left kidney normal size and echotexture, 10.2 x 5.7 x 5.8 cm length. Small echogenic foci in the left lower pole. No twinkling artifact. No collecting system dilatation of either kidney. Normal color Doppler. IMPRESSION: 1. Left lower pole echogenic focus without twinkling, may represent prominent renal sinus fat. If there is concern for nephrolithiasis, recommend CT. 2. Unremarkable right kidney. This document has been electronically signed by: Cher Schroeder MD on 01/24/2025 19:23:38
[2025-01-24 13:51] VITALS: BP 118/69; PULSE 104; O2SAT 98
[2025-01-24 14:02] VITALS: BP 125/65; PULSE 122; RESP 16; TEMP 36.9; O2SAT 99; BMI 22.5
[2025-01-24 14:06] VITALS: PULSE 120; RESP 16
--- NOTE | 2025-01-24 15:00 | PC.NURSE ---
Report to Martha SMALLWOOD
--- NOTE | 2025-01-24 15:55 | ED.GENADULT ---
HPI - General Adult General Chief complaint: General Medical Stated complaint: GENITAL PAIN/ MENTAL HEALTH DECLINE Time Seen by Provider: 01/24/25 15:44 Source: patient Mode of arrival: ambulatory Limitations: no limitations History of Present Illness ED Provider: Dr. Michelle [facility] narrative: This is a 24-year-old male presented hospital today for persistent dysuria. Patient's stated that he started the antibiotic however did not completed as he went to outpatient clinic and the provider there stated that they do not think patient has STD. It was noted that patient was seen here last week approximately. Patient was evaluated for HSV there was concerned about vesicles on his penis. Patient refused swab during the incident. However patient stated that he did not refuse swab and this swab was performed. I did review lab work. Unfortunately the lab did not have sufficient sample for testing for HSV. Related Data Home Medications ?Medication ?Instructions ?Recorded ?Confirmed sertraline 50 mg tablet 50 mg PO DAILY 01/25/25 01/25/25 trazodone 50 mg tablet 50 mg PO BEDTIME 01/25/25 01/25/25 Previous Rx's ?Medication ?Instructions ?Recorded hydroxyzine HCl 25 mg tablet 25 mg PO Q8H PRN anxiety #60 tabs 11/29/23 valacyclovir 1 gram tablet 1,000 mg PO TID 10 days #30 tabs 01/24/25 Allergies Allergy/AdvReac Type Severity Reaction Status Date / Time No Known Allergies Allergy Verified 01/24/25 14:05 Review of Systems Review of Systems: Pertinent review of systems as mentioned in HPI. All other system otherwise negative. [facility] Past Medical History [facility] Narrative: Medical history as mentioned in [facility] Medical History (Updated 01/26/25 @ 22:48 by Lena Sanders NP) Anxiety Social History Social History Household Members: Spouse Housing: Apartment Patient Tobacco Use Status: Never used Tobacco Smoked in Last 30 Days: No Use of substances other than those prescribed or required for medical reasons: Yes Substance Use Type: Marijuana Currently Displaying Signs/Symptoms of Drug Intoxication Withdrawal: No Advance Directives: No Advance Directives Information Provided: Yes Do you have thoughts of harming others: None Do you have a plan to hurt others: No Plan Recently lost weight without trying: No Eating poorly because of decreased appetite: No Nutrition Risks: No Nutritional Risk Poor oral hygiene: No service: No Sexual orientation: Straight/Heterosexual Physical Exam ED Exam Exam: General: Pleasant, no distress, interacting appropriately Head: Normacephalic, atraumatic ENT: oral mucosa moist, neck supple, no tracheal deviation : Vesicular appearing rash on patient's penis. Neurological: Awake and alert, no facial droop noted Skin: Warm and dry Psychiatric: Appropriate mood and thoughts Vital Signs: Vital Signs - 24 hr 01/25/25 16:19 01/25/25 20:23 01/26/25 07:58 Temperature 98.9 F 98.4 F 98 F Pulse Rate 88 74 99 Respiratory Rate 18 18 18 Blood Pressure 126/92 H 116/58 L 136/78 Pulse Oximetry 99 100 100 Oxygen Delivery Method Room Air Room Air Room Air BMI result Body Mass Index 22.5 Course Reevaluation(s) Reevaluation #1: Time: 16:55 Date: 01/25/25 Provider: Ethan Garcia MD Patient in physician observation for psychiatric evaluation.? No acute events reported overnight. No current complaints. VS stable.? Patient is in bed search status. Reevaluation #2: Time: 05:56 Date: 01/26/25 Provider: Malaika Talamantes DO Patient in physician observation for psychiatric evaluation.? No acute events reported overnight. No current complaints. VS stable.? IPBS. Will continue to monitor. Reevaluation #3: Time: 12:35 Date: 01/26/25 Provider: Malaika Talamantes DO Physician observation ended at 12:35 Patient to be admitted as inpatient to psychiatry. Medications Administered Generic Name Dose Route Start Last Admin Trade Name Freq PRN Reason Stop Dose Admin Acetaminophen 975 mg 01/26/25 18:29 01/28/25 09:36 Acetaminophen 325 Mg Tablet PO 975 mg Q8H PRN Administration pain mild Clonidine HCl 0.1 mg 01/27/25 17:04 01/29/25 08:55 Clonidine Hcl 0.1 Mg Tablet PO 0.1 mg Q4H PRN Administration moderate anxiety Protocol Clonidine HCl 0.1 mg 01/28/25 21:00 01/28/25 21:32 Clonidine Hcl 0.1 Mg Tablet PO 0.1 mg BEDTIME CHERYL Administration Protocol Hydroxyzine HCl 25 mg 01/26/25 18:29 01/29/25 05:19 Hydroxyzine Hcl 25 Mg Tablet PO 25 mg Q6H PRN Administration Anxiety Ibuprofen 400 mg 01/24/25 20:00 01/29/25 03:58 Ibuprofen 400 Mg Tablet PO 400 mg Q8H CHERYL Administration Lidocaine 1 appl 01/28/25 10:59 01/29/25 03:59 Lidocaine 5 % Ointment 35 Gm TOPICAL 1 appl Q6H PRN Administration HSV pain Protocol Lidocaine HCl 1 appl 01/27/25 17:03 01/28/25 09:35 Lidocaine 4 % Cream Kit TOPICAL 1 appl On Hold: 01/28/25 10:59 BID PRN Administration genital herpes pain Protocol Ondansetron HCl 4 mg 01/28/25 18:31 01/28/25 18:40 Ondansetron Odt 4 Mg Tab.Rapdis TRANSLINGU 4 mg Q6H PRN Administration Nausea and Vomiting Phenazopyridine HCl 200 mg 01/24/25 19:58 01/28/25 21:34 Phenazopyridine Hcl 200 Mg Tablet PO 200 mg TID PRN Administration Pain, Mild (Pain Scale 1-3) Sertraline HCl 75 mg 01/28/25 09:00 01/29/25 08:56 Sertraline Hcl 25 Mg Tablet PO 75 mg DAILY CHERYL Administration Trazodone HCl 50 mg 01/26/25 21:00 01/28/25 21:33 Trazodone Hcl 50 Mg Tablet PO 50 mg BEDTIME CHERYL Administration Trazodone HCl 50 mg 01/26/25 18:28 01/27/25 00:41 Trazodone Hcl 50 Mg Tablet PO 50 mg BEDTIME PRN Administration Insomnia Trazodone HCl 100 mg 01/27/25 21:00 01/28/25 21:33 Trazodone Hcl 100 Mg Tablet PO 100 mg BEDTIME CHERYL Administration Valacyclovir HCl 1,000 mg 01/24/25 20:00 01/29/25 03:58 Valacyclovir Hcl 1,000 Mg Tablet PO 1,000 mg Q8H CHERYL Administration Discontinued Medications Generic Name Dose Route Start Last Admin Trade Name Freq PRN Reason Stop Dose Admin Acetaminophen 975 mg 01/24/25 20:00 01/26/25 12:57 Acetaminophen 325 Mg Tablet PO 975 mg Q8H CHERYL Administration Aripiprazole 5 mg 01/27/25 09:00 01/28/25 09:16 Aripiprazole 5 Mg Tablet PO 5 mg DAILY CHERYL Administration Diphenhydramine HCl 50 mg 01/24/25 23:28 01/24/25 23:36 Diphenhydramine Hcl 25 Mg Capsule PO 01/24/25 23:29 50 mg ONCE ONE Administration Hydroxyzine HCl 25 mg 01/26/25 12:19 01/26/25 16:57 Hydroxyzine Hcl 25 Mg Tablet PO 25 mg Q8H PRN Administration Anxiety Influenza Virus Vaccine 0.5 ml 01/26/25 16:51 01/27/25 08:38 Flu Vacc [id number](6mo Up)/Pf 0.5 Ml Syringe IM 01/26/25 16:52 Not Given .ONCE ONE Lorazepam 2 mg 01/24/25 23:28 01/24/25 23:36 Lorazepam 1 Mg Tablet PO 01/24/25 23:29 2 mg ONCE ONE Administration Lorazepam 2 mg 01/25/25 16:25 01/25/25 16:53 Lorazepam 1 Mg Tablet PO 01/25/25 16:26 2 mg ONCE ONE Administration Lorazepam 1 mg 01/26/25 09:37 01/26/25 09:42 Lorazepam 1 Mg Tablet PO 01/26/25 09:38 1 mg ONCE ONE Administration Olanzapine 5 mg 01/26/25 12:19 01/27/25 09:13 Olanzapine 5 Mg Tablet PO 5 mg Q4H PRN Administration agitation Phenazopyridine HCl 200 mg 01/24/25 17:25 01/24/25 17:36 Phenazopyridine Hcl 200 Mg Tablet PO 01/24/25 17:26 200 mg ONCE ONE Administration Sertraline HCl 50 mg 01/27/25 09:00 01/27/25 08:36 Sertraline Hcl 50 Mg Tablet PO 50 mg DAILY CHERYL Administration Medical Decision Making Medical Decision Making MDM Narrative: 24-year-old male presented hospital today for evaluation of dysuria. Suspicious for HSV infection and herpes. Of the patient's penis. Patient stated that he does not want to take antibiotic or treatment because provider from outpatient clinic stated it is not STD based on lab testing. I did inform him of the lab testing here did show that the HSV sampled was insufficient. Patient states he does not want started any medicine. I did discuss that it is up to him whether he would like to take the medicine or not. It is my recommendation that he does complete a course of antiviral for HSV infection. He is also complaining of depression and thoughts of suicide yesterday. We will plan to consult crisis team at this time. UA did not show any signs of UTI. We will obtain ultrasound to assess for any signs of hydronephrosis. I suspect this is likely a herpes infection. Crisis team we will plan to keep patient in the ER. The patient will be section and held for inpatient search. They are unsure whether they can validate whether patient is suicide out or not. It was difficult to discern from patient's evaluation. Patient is willing to stay at the hospital at this time for a psychiatric assistance. UA did not show any signs of infection. Ultrasound did not show any signs of hydronephrosis. The patient did have left lower pole echogenic focus. It was recommended that patient obtain a CT imaging. CT imaging was ordered. We will plan to start patient on valacyclovir. He is willing to take it at this time. CT imaging is negative. Patient will be signed out to oncoming provider pending psychiatric evaluation. Differential Diagnosis Differential Diagnoses: The differential diagnosis associated with the presentation includes Penile discharge, dysuria, UTI, nephrolithiasis Consult Healthcare Provider Management of the patient was discussed with: Behavioral Health Provider Lab Data [facility] Lab Attestation statement: I reviewed the patient's lab results. 01/24/25 16:34 01/24/25 16:34 Labs: Lab Results 01/24/25 Range/Units 16:34 WBC 12.0 H (4.8-10.8) X10*3/uL RBC 4.44 L (4.60-5.80) X10*6/uL Hgb 13.5 L (14.0-18.0) g/dl Hct 39.2 L (42.0-52.0) % MCV 88.3 (80.0-98.0) fL MCH 30.4 (27.0-33.0) pg MCHC 34.4 (31.0-36.0) g/dl RDW 12.8 (11.0-16.0) % Plt Count 232 (160-400) X10*3/uL MPV 9.4 (9.4-12.4) fL Immature Gran % (Auto) 0.7 H (0.0-0.4) % Neut % (Auto) 79.9 H (45-73) % Lymph % (Auto) 14.2 L (20-40) % Bland % (Auto) 5.0 (2-11) % Eos % (Auto) 0.0 (0-4) % Baso % (Auto) 0.2 (0-2) % Lymph # (Auto) 1.7 (1.2-4.9) X10*3/uL Bland # (Auto) 0.6 (0.1-1.2) X10*3/uL Eos # (Auto) 0.0 (0.0-0.4) X10*3/uL Baso # (Auto) 0.0 (0.0-0.2) X10*3/uL Abs Immat Gran (auto) 0.08 H (0.00-0.03) X10*3/uL Absolute Neuts (auto) 9.6 H (2.0-8.3) x10*3/uL Absolute Nucleated RBC 0.000 (0.0-0.012) X10*3/uL Nucleated RBC % (auto) 0.0 (0.0-0.2) /100WBC Sodium 141 (135-145) mmol/L Potassium 3.9 (3.3-5.1) mmol/L Chloride 106 (96-108) mmol/L Carbon Dioxide 24 (22-29) mmol/L Anion Gap 15 (12-20) BUN 7 L (9-16) mg/dL Creatinine 0.80 (0.5-1.4) mg/dL Estim Creat Clear Calc 114.5 Estimated GFR > 60 Random Glucose 98 (60-115) mg/dL Calcium 9.8 (8.4-10.2) mg/dL Urine Color Dark Yellow Urine Appearance Cloudy Urine pH 5.5 (5.0-9.0) Ur Specific Grayson >= 1.030 H (1.005-1.025) Urine Protein 30 (1+) H (Neg-Trace) mg/dL Urine Glucose (UA) Negative (Negative) mg/dL Urine Ketones 40 (Negative) mg/dL Urine Blood Negative (Negative) Urine Nitrite Negative (Negative) Ur Leukocyte Esterase Negative (Negative) Urine RBC 0-2 (0-2) /HPF Urine WBC 0-5 (0-5) /HPF Ur Squamous Epith Cells 6-10 (0-2) /HPF Calcium Oxalate Crystal Present Urine Bacteria None Seen (None Seen) Hyaline Casts 11-20 (0-2) /LPF Salicylates < 5.0 L (15-30) mg/dL Urine Opiates Screen Not Detected (Not Detect) Ur Buprenorphine Scrn Not Detected (Not Detect) ng/mL Ur Oxycodone Screen Not Detected (Not Detect) ng/mL Urine Methadone Screen Not Detected (Not Detect) ng/mL Urine Fentanyl Screen Not Detected (Not Detect) Acetaminophen < 3 (<30) mcg/mL Ur Barbiturates Screen Not Detected (Not Detect) Ur Phencyclidine Scrn Not Detected (Not Detect) Ur Amphetamines Screen Not Detected (Not Detect) U Benzodiazepines Scrn Not Detected (Not Detect) Urine Cocaine Screen Not Detected (Not Detect) U Marijuana (THC) Screen POSITIVE H (Not Detect) Ethyl Alcohol < 10 mg/dL Independent Interpretation I performed an independent interpretation of an: CT Scan Radiology Impression Discussion of test interpretation with radiology: I have reviewed the radiologist's reading. Discharge Plan Discharge Clinical Impression: Depression, Dysuria, Herpes genitalia Patient Disposition: Admitted As Inpatient Interventions: Admission Worksheet (ED) Last Done: 01/26/25 15:07 Discharge Date/Time: 01/26/25 15:28
[2025-01-24 15:56] VITALS: BP 115/67; PULSE 103; RESP 16; TEMP 36.6; O2SAT 98
[2025-01-24 16:40] LABS: MANUAL DIFF FLAG NO
[2025-01-24 16:44] LABS: Hematocrit 39.2 % (42.0-52.0); Hemoglobin 13.5 g/dl (14.0-18.0); Imm Gran Abs Auto 0.08 X10*3/uL (0.00-0.03); Imm Gran Pct Auto 0.7 % (0.0-0.4); Lymphocytes Absolute Auto 1.7 X10*3/uL (1.2-4.9); Mean Corpuscular HGB Conc 34.4 g/dl (31.0-36.0); Mean Corpuscular Hemoglobin 30.4 pg (27.0-33.0); Mean Corpuscular Volume 88.3 fL (80.0-98.0); NRBC Abs Auto 0.000 X10*3/uL (0.0-0.012); NRBC Pct Auto 0.0 /100WBC (0.0-0.2); Platelet Count 232 X10*3/uL (160-400); Red Blood Count 4.44 X10*6/uL (4.60-5.80); White Blood Count 12.0 X10*3/uL (4.8-10.8)
[2025-01-24 16:45] LABS: Appearance Urine Cloudy; Glucose Urine UA Negative (Negative); PH 5.5 (5.0-9.0); Specific Gravity - Urine >= 1.030 (1.005-1.025); UMIC TRIGGER UA YES
[2025-01-24 16:58] LABS: Cannabinoid Screen Urine POSITIVE (Not Detect)
[2025-01-24 17:01] LABS: Anion Gap 15 (12-20); Blood Urea Nitrogen 7 mg/dL (9-16); Calcium 9.8 mg/dL (8.4-10.2); Carbon Dioxide 24 mmol/L (22-29); Chloride 106 mmol/L (96-108); Creatinine Clr Calc Pharmacy 114.5; Estimated Glomerular Filt Rate > 60; Potassium 3.9 mmol/L (3.3-5.1); Sodium 141 mmol/L (135-145)
[2025-01-24 17:07] LABS: Acetaminophen LAB < 3 mcg/mL (<30); Salicylate < 5.0 mg/dL (15-30)
--- NOTE | 2025-01-24 18:30 | MHC.EDTECH ---
[facility] There is no documentation of crisis changeover or any belongings list done staff member who changed pt over. Pt coat was located on the back of his stretcher this tech put the coat in a pt belongings bags and labeled along with pr other belongings in [facility]. This Tech will complete a belongings list
[2025-01-24 19:20] VITALS: BP 111/63; PULSE 64; RESP 18; O2SAT 97
--- NOTE | 2025-01-24 19:23 | PC.NURSE ---
this rn assumed care of pt, pt resting in stretcher, no acute distress noted. sitter at bedside
--- NOTE | 2025-01-24 21:03 | PC.NURSE ---
pt medicated per mar with tylenol and ibuprofen, pt refusing antiviral medication, aware
--- NOTE | 2025-01-24 23:38 | PC.NURSE ---
Took over care at 23:00 medicated per mar, pt resting and watching TV
--- OUTSIDE RECORDS SUMMARY | 2025-01-25 03:39 | XMS_ITS | Encounter Summary ---
Author Organization [employer] Address [address] [place] [address] Care Team Providers Care Mixer Slagman Name Role Phone Unavailable Primary Care Provider Unavailabl e Reason for Visit * Reason Onset Date Comments Medication Question 01/24/2025 Encounter Details Date Type Department Care Team ([facility] st Contact Info) Description 01/24/2025 Telephone [facility] [address] [place] [address] Dae Colindres MD [address] [place] [address] Medication Question Social History Tobacco Use Types Packs/Day Years Used Date Smoking Tobacco: Never Assessed Sex and Gender Information Value Date Recorded Sex Assigned at Male 01/05/2022 10:24 AM EDT Legal Sex Male 10:24 AM EDT Gender Identity Male 01/23/2025 9:23 AM EST Sexual Orientation Choose not to disclose 2024 9:23 AM EST documented as of this encounter Miscellaneous Notes * Telephone Encounter - Nury Pablo RN - 01/24/2025 2:18 PM EST Tc from pt partner requesting a call back Contact at [phone] Patent had questions regarding lotion that was prescribed during walk in [facility], questions answered spoke to partner + HIPAA who also reports pt was taken to hospital by ambulance a little while ago partner states she will follow up for an appointment when pt is released. This pt is in need of a new pt appointment partner reports history of crisis for anxiety * Telephone Encounter - Miguel Angel Jones - 01/24/2025 11:26 AM EST Tc from pt partner requesting a call back Contact at [phone] * Telephone Encounter - Clayton Ordoñez - 01/24/2025 9:37 AM EST Tc from pt partner requesting a call back regarding some questions she had about the medication that was prescribed to the pt at the [facility] Contact partner at [phone] documented in this encounter Plan of Treatment Not on file documented as of this encounter Visit Diagnoses Not on filedocumented in this encounter
--- OUTSIDE RECORDS SUMMARY | 2025-01-25 03:39 | XMS_ITS | Encounter Summary ---
Author Organization [facility] Address [address] [place] [phone] Phone Care Team Providers Care Blindstitch Lining Feller Name Role Phone Jevon Doherty MD Primary Care Provider Unavailabl e Encounter Details Date Type Department Care Team (Late st Contact Info) Description 06/18/2010 Documentation EM Family Medicine [address] [place] [address] Family Medicine, Physician [facility] [address] [place], [place] [address] Social History Tobacco Use Types Packs/Day Years [...] on filedocumented in this encounter Care Teams Blindstitch Lining Feller Relationship Specialty Start Date End Date Jevon Doherty MD PCP - General 10/16/16 documented as of this encounter
--- OUTSIDE RECORDS SUMMARY | 2025-01-25 03:40 | XMS_ITS | Clinical Summary ---
Author Organization [employer] Address [address] [place] [address] Care Team Providers Care Shipwright Apprentice Name Role Phone Unavailable Primary Care Provider Unavailabl e Allergies No known active allergies Medications clotrimazole (Lotrimin) 1 % creamIndication s:Candidiasis Apply topically 2 times daily. 14 g 1 01/23/2025 1:26 PM EST Active Encounters Date Type Department Care Team Description 01/24/2025 Telephone [facility] MEDICINE [address] [place] [phone] Dae Colindres MD Medication Question 01/23/2025 9:40 AM EST Office Visit [facility] [address] [place] [phone] Marguerite Morris MD Candidiasis (Primary Dx) 01/23/2025 Travel from Last 3 Months Social History Tobacco Use Types Packs/Day Years Used Date Smoking Tobacco: Never Assessed Sex and Gender Information Value Date Recorded Sex Assigned at Male 01/05/2022 10:24 AM EDT Legal Sex Male 10:24 AM EDT Gender Identity Male 01/23/2025 9:23 AM EST Sexual Orientation Choose not to disclose 2024 9:23 AM EST Last Filed Vital Signs Vital Sign Reading [...] - - Body Mass Index - - Plan of Treatment Health Maintenance Due Date Last Done Comments Depression Screening 2000 HIV Screening 2000 SDOH Screening 2000 Disability Screening 2000 Alcohol/Substance Use Screening 2012 Tobacco Screening 2012 Family Planning (PISQ) 2015 HPV Vaccines (1 - Male 3-dose series) 2015 Hepatitis C Screening 2018 DTaP/Tdap/Td Vaccines (7 - Td or Tdap) 11/10/2022 11/10/2012, 04/16/2004, 09/23/2001, Additional history exists COVID-19 Vaccine (1 - 2024- season) 2024 Influenza Vaccine (#1) 2024 01/28/2009 Zoster Vaccines (1 of 2) 2050 RSV Patients and Patients Aged 60 years or older (1 - 1-dose 75+ series) 2075 Pneumococcal Vaccine: Pediatrics (0 to 5 Years) and At-Risk Patients (6 to 49) Years Aged Out 2000, 2000, 2000 No longer eligible based on patient's age to complete this topic Hepatitis B Vaccines Completed 01/07/2001, 2000, 2000 HIB Vaccines Completed 07/01/2001, 03/2000, 2000, Additional history exists IPV Vaccines Completed 04/16/2004, 03/2000, 2000, Additional history exists Meningococcal Vaccine Aged Out 11/10/2012 No neli mabel eligible based on patient's age to complete this topic Hepatitis A Vaccines Aged Out No long er eligible based on patient's age to complete this topic Meningococcal B Vaccine Aged Out No l onger eligible based on patient's age to complete this topic RSV under 20 months Aged Out No longe r eligible based on patient's age to complete this topic Rotavirus Vaccines Aged Out No longer eligible based on patient's age [place] [address] [facility] [address] [place] [address] [place] [address] [place] [address]
--- OUTSIDE RECORDS SUMMARY | 2025-01-25 03:40 | XMS_ITS | Clinical Summary ---
Author Organization [facility] Address [address] [place] [phone] Phone Care Team Providers Care Die Out Worker Name Role Phone Jevon Doherty MD Primary [...] age to complete this topic Care Teams Die Out Worker Relationship Specialty Start Date End Date Jevon Doherty MD PCP - General 10/16/16
--- OUTSIDE RECORDS SUMMARY | 2025-01-25 03:40 | XMS_ITS | Encounter Summary ---
Author Organization [employer] Address [address] [place] [address] Care Team Providers Care Car Deliverer Name Role Phone Unavailable Primary Care Provider Unavailabl e Encounter Details Date Type Department Care Team (Latest Contact Info) Description 01/23/2025 Travel Social History Tobacco Use Types Packs/Day Years Used Date Smoking Tobacco: Never Assessed Sex and Gender Information Value Date Recorded Sex Assigned at Male 01/05/2022 10:24 AM EDT Legal Sex Male 10:24 AM EDT Gender Identity Male 01/23/2025 9:23 AM EST Sexual Orientation Choose not to disclose 2024 9:23 AM EST documented as of this encounter Plan of Treatment Not on file documented as of this encounter Visit Diagnoses Not on filedocumented in this encounter
--- OUTSIDE RECORDS SUMMARY | 2025-01-25 03:40 | XMS_ITS | Encounter Summary ---
Author Organization [facility] Address [address] [place] [address] Phone Care Team Providers Care [facility] Name Role Phone Jevon Doherty MD Primary Care Provider Unavailabl e Encounter Details Date Type Department Care Team (Late st Contact Info) Description 10/22/2016 Conversion Encounter [facility] - [address] [address] Social History Tobacco Use Types Packs/Day Years [...] on filedocumented in this encounter Care Teams [facility] Relationship Specialty Start Date End Date Jevon Doherty MD PCP - General 10/16/16 documented as of this encounter
--- OUTSIDE RECORDS SUMMARY | 2025-01-25 03:40 | XMS_ITS | Encounter Summary ---
Author Organization [facility] Address [address] [place] [phone] Phone Care Team Providers Care Neuropsychologist Name Role Phone Jevon Doherty MD Primary Care Provider Unavailabl e Encounter Details Date Type Department Care Team (Late st Contact Info) Description 06/12/2009 Documentation EM Family Medicine [address] [place] [address] Family Medicine, Physician [facility] [address] [place], [place] [phone] Social History Tobacco Use Types Packs/Day Years [...] on filedocumented in this encounter Care Teams Neuropsychologist Relationship Specialty Start Date End Date Jevon Doherty MD PCP - General 10/16/16 documented as of this encounter
--- NOTE | 2025-01-25 06:04 | PC.NURSE ---
drink given and medication per mar.
[2025-01-25 06:09] VITALS: BP 109/64; PULSE 88; RESP 17; TEMP 36.8; O2SAT 100
--- NOTE | 2025-01-25 07:59 | PC.NURSE ---
Assumed care of patient at 0645, patient appears to be in no apparent distress this am, calm and cooperative, offering no complaints to this RN. Continue plan of care for IPLOC
--- NOTE | 2025-01-25 14:01 | PHA.MEDREC ---
Addendum entered by Imelda Fang [facility] 01/25/25 14:11: REVIEWED BY PHARMACIST Original Note: Pharmacy Consult ? Medication Reconciliation Pharmacy reviewed med rec done by nursing. Spoke with pt and he states he has not been able to start the Trazodone, Hydroxyzine or Sertraline but states he should be taking them and has not been able to take any medications in about 1 week.
[2025-01-25 16:19] VITALS: BP 126/92; PULSE 88; RESP 18; TEMP 37.2; O2SAT 99
[2025-01-25 20:23] VITALS: BP 116/58; PULSE 74; RESP 18; TEMP 36.9; O2SAT 100
--- NOTE | 2025-01-26 07:03 | PC.NURSE ---
Assumed care of patient at 0645, patient appears to be in no apparent distress this am, resting in bed, respirations even and unlabored. Continue plan of care for IPLOC
[2025-01-26 07:58] VITALS: BP 136/78; PULSE 99; RESP 18; TEMP 36.6; O2SAT 100
--- NOTE | 2025-01-26 09:38 | PC.NURSE ---
Pt very anxious this am about diagnosis, frequently asking the same questions that he asked this RN yesterday about the medications and lifelong treatment. He paces then re-presents to the nurses station to ask the same questions in a repetitive manner. This RN requested PO medication for anxiety from provider, awaiting response at this time
[2025-01-26 14:05] VITALS: BP 106/67; PULSE 100; RESP 16; TEMP 36.4; O2SAT 99
[2025-01-26 15:40] VITALS: BP 125/79; PULSE 86; RESP 15; TEMP 2.7; TEMP 36.9; O2SAT 99; BMI 21.0
--- NOTE | 2025-01-26 17:49 | PC.ADMIT ---
Patient 24 year old, male , Ghanaian-speaking, was evaluated in the ED by the care team for acute suicidal ideation in the context of a recent diagnosis of a sexually transmitted infection (STI), which has contributed to worsening depression, anxiety, feeling of hopelessness. The patient reported intrusive thought of self harm with no plan, denies homicidal ideation or psychotic symptoms. Patient was frustrated and said if I don't fix the pain, I am going to kill myself.. . On skin check inspection, no abrasion, no bruises were found, mental status exam shows depressed mood, constricted affect, linear thought process, and impaired judgment related to safety. After evaluation by the Care Team, given elevated suicide risk and limited coping capacity, patient was admitted to at 15:20 PM, inpatient psychiatric for safety, stabilization, medication management, and coordination of medical treatment.
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
[2025-01-27 08:00] VITALS: BP 125/57; PULSE 82; TEMP 36.6; O2SAT 97
[2025-01-27 09:26] LABS: Cholesterol 136 mg/dL (<200); HDL Cholesterol 46 mg/dL (>40); Magnesium 2.2 mg/dL (1.6-2.6); Triglycerides 112 mg/dL (<150)
[2025-01-27 09:44] LABS: Free T4 (Free Thyroxine) 1.35 ng/dL (0.71-1.85); Thyroid Stimulating Hormone 0.71 uIU/mL (0.32-4.0)
[2025-01-27 09:55] LABS: Folate 8.9 ng/mL (> or = 4.0); Vitamin B12 228 pg/mL (200-900)
--- NOTE | 2025-01-27 11:38 | P.PNPSI_ITS ---
Subjective Subjective Date of Service: 01/27/25 Reason For Visit: GENITAL PAIN/ MENTAL HEALTH DECLINE Interim History: Met with patient; discussed with team; reviewed chart Patient reports he is not suicidal and says that he was only suicidal because of the genital pain. Formula Technician reviewed chart with him and explained that according to the chart as engineering technical writer reads it, the test for genital HSV was inconclusive however the ED provider thinks that it is quite likely he does have herpes. Patient continues to complain of pain on his penis shaft with the lesions are; he is taking valacyclovir. Discussed options for pain and he agrees to try lidocaine cream which is indicated. Discussed depression and he says he was started on Zoloft a week or 2 ago by his PCP; agrees to increasing dose Diagnostics Vital Signs (24Hr): Vital Signs - 24 hr 01/26/25 14:05 01/26/25 15:40 01/27/25 08:00 Temperature 97.6 F 36.9 F L 97.8 F Pulse Rate 100 86 82 Respiratory Rate 16 15 Blood Pressure 106/67 125/79 125/57 L Pulse Oximetry 99 99 97 Oxygen Delivery Method Room Air Room Air Room Air BMI result Body Mass Index 21.0 Labs 01/24/25 16:34 01/24/25 16:34 Labs: Laboratory Results - last 48 hr 01/27/25 08:31 Estimat Average Glucose 94 Hemoglobin A1c % 4.9 Magnesium 2.2 Triglycerides 112 Cholesterol 136 LDL Cholesterol, Calc 68 HDL Cholesterol 46 Vitamin B12 228 Folate 8.9 TSH 0.71 Free T4 1.35 Medications Medications Current Medications Acetaminophen (Acetaminophen 325 Mg Tablet) 975 mg PO Q8H PRN PRN Reason: pain mild Last Admin: 01/27/25 09:12 Dose: 975 mg Al Hydroxide/Mg Hydroxide (Magnesium Hydrox/Alum Hydrox 30 Ml Oral.Susp) 30 ml PO Q6H PRN PRN Reason: Heartburn/Nausea Aripiprazole (Aripiprazole 5 Mg Tablet) 5 mg PO DAILY CHERYL Last Admin: 01/27/25 08:36 Dose: 5 mg Hydroxyzine HCl (Hydroxyzine Hcl 25 Mg Tablet) 25 mg PO Q6H PRN PRN Reason: Anxiety Last Admin: 01/27/25 09:13 Dose: 25 mg Ibuprofen (Ibuprofen 400 Mg Tablet) 400 mg PO Q8H CHERYL Last Admin: 01/27/25 04:43 Dose: 400 mg Magnesium Hydroxide (Milk Of Magnesia 30 Ml Oral.Susp) 30 ml PO DAILY PRN PRN Reason: Constipation Nicotine Polacrilex (Nicotine Polacrilex 2 Mg Gum) 4 mg BUCCAL Q2H PRN PRN Reason: Nicotine Cravings Olanzapine (Olanzapine 5 Mg Tablet) 5 mg PO Q4H PRN PRN Reason: agitation Last Admin: 01/27/25 09:13 Dose: 5 mg Phenazopyridine HCl (Phenazopyridine Hcl 200 Mg Tablet) 200 mg PO TID PRN PRN Reason: Pain, Mild (Pain Scale 1-3) Last Admin: 01/27/25 04:42 Dose: 200 mg Sertraline HCl (Sertraline Hcl 50 Mg Tablet) 50 mg PO DAILY CHERYL Last Admin: 01/27/25 08:36 Dose: 50 mg Trazodone HCl (Trazodone Hcl 50 Mg Tablet) 50 mg PO BEDTIME CHERYL Last Admin: 01/26/25 20:44 Dose: 50 mg Trazodone HCl (Trazodone Hcl 50 Mg Tablet) 50 mg PO BEDTIME PRN PRN Reason: Insomnia Last Admin: 01/27/25 00:41 Dose: 50 mg Valacyclovir HCl (Valacyclovir Hcl 1,000 Mg Tablet) 1,000 mg PO Q8H CHERYL Last Admin: 01/27/25 04:42 Dose: 1,000 mg Allergies Allergies Allergy/AdvReac Type Severity Reaction Status Date / Time No Known Allergies Allergy Verified 01/24/25 14:05 Assessment & Plan Assessment & Plan (1) Depression: Status: Acute Code(s): F32.A - Depression, unspecified (2) Anxiety: Status: Acute Code(s): F41.9 - Anxiety disorder, unspecified (3) Dysuria: Status: Acute Code(s): R30.0 - Dysuria (4) Herpes genitalia: Status: Acute Code(s): A60.00 - Herpesviral infection of urogenital system, unspecified Plan HPI: Pt is a 24 year old, , Bengali speaking in relationship male with hx of MDD, anxiety who is assessed by the CARE team at [facility] after he presents via EMS due to increased anxiety, depression and SI secondary to pain from a recent medical concern- testes. Per [facility], Pt was assessed by their crisis team earlier this afternoon at the request of [facility]'s clinical director (Maxi Hernandez). It was reported that Pt had not been sleeping for the past few weeks and was expressing that he was going to hurt himself in relation to experiencing physical pain. If I don't fix the pain, I'm going to hurt myself and I don't want to be here. CHD's disposition was for medical clearance. Pt reports a hx of struggling with Depression and Anxiety. He reports marijuana use. Formulation/clinical reasoning: increased in depression anxiety, making suicidal statements, poor sleep and appetite, in pain. unemployed and feeling hopeless and he is not enough for his chidlren. Hx of MDD, Anxiety, and anger issues. Given above information, patient would benefit in restrictive environment for safety, medication adjustment and refer patient back to OP psychiatric services for aftercare. He would be a good candidate for PHP. Hospital course: 01/26/25: start on Abilify 5mg daily Continue with Zoloft 50mg for depresion/anxiety. Will titrate up to therapeutic dose. Report dose just increased by OP provider a day or two ago Trazodone 50mg at HS with RP x1 PRN Valtrex 1,000mg Q8 hr. Need to verify end date. 01/27 Patient reports he is not suicidal and says that he was only suicidal because of the genital pain. Formula Technician reviewed chart with him and explained that according to the chart as engineering technical writer reads it, the test for genital HSV was inconclusive however the ED provider thinks that it is quite likely he does have herpes. Patient continues to complain of pain on his penis shaft with the lesions are; he is taking valacyclovir. Discussed options for pain and he agrees to try lidocaine cream which is indicated. Discussed depression and he says he was started on Zoloft 1-2weeks ago by his PCP; agrees to increasing dose -patient asks how long he needs to stay on the unit, that he is not suicidal and wants to go home; engineering technical writer discussed treatment plan and patient is amenable to remain on the unit for now but would like to go home soon Plan Patient on 15 minute checks for safety. Admitted to . CV. Work with treatment team to do collateral. Could be a good candidate for PHP for aftercare Patient educated on: diagnosis, medication risk/benefits and medical condition Informed Consent: understands Reason for continued inpatient stay Substantial Risk for: rapid decompensation Time Spent With Patient Time: Total time managing care of this patient today ____ minutes.
[2025-01-27 20:00] VITALS: BP 120/70; PULSE 94; RESP 20; TEMP 37.2; O2SAT 98
[2025-01-27] MEDS: Lidocaine 4 % Cream KIT 1 APPL TOPICAL (20:35)
[2025-01-27 23:28] VITALS: BP 126/72
[2025-01-28 08:00] VITALS: BP 132/81; PULSE 70; RESP 17; TEMP 37.2; O2SAT 99
[2025-01-28] MEDS: Lidocaine 4 % Cream KIT 1 APPL TOPICAL (09:35)
--- NOTE | 2025-01-28 10:49 | HO.PSYCHPN ---
Subjective Subjective Date of Service: 01/28/25 Reason For Visit: GENITAL PAIN/ MENTAL HEALTH DECLINE Interim History: met with patient; discussed with team pt reports moods is better and he feels much more calmed; no SI at all. Discussed treatment and patient benefitting from lidocaine cream but agrees to try ointment instead to see if it can help more. -patient was started on Abilify on admission but no indication for this so will discontinue Mental Status Exam Mental Status Exam Narrative: Pt is alert and oriented; behavior is cooperative, friendly and calm; patient is not in distress; dressed in casual attire with unkempt hair but adequate hygiene; mood is described as good and affect congruent; eye contact appropriate; Speech is normal rate, volume and prosody and not pressured; no psychomotor agitation/retardation present; thought process is organized and goal directed; Thought content is on tx; otherwise pertinent to relevant topics and without any delusional content, paranoid ideations or grandiosity; denies any SI/HI. Denies AVH and there is no evidence of perceptual disturbance. Patients insight and judgment appear intact. Diagnostics Vital Signs (24Hr): Vital Signs - 24 hr 01/27/25 20:00 01/27/25 23:28 01/28/25 08:00 Temperature 98.9 F 98.9 F Pulse Rate 94 70 Respiratory Rate 20 17 Blood Pressure 120/70 126/72 132/81 Pulse Oximetry 98 99 Oxygen Delivery Method Room Air Room Air BMI result Body Mass Index 21.0 Labs 01/24/25 16:34 01/24/25 16:34 Labs: Laboratory Results - last 48 hr 01/27/25 08:31 Estimat Average Glucose 94 Hemoglobin A1c % 4.9 Magnesium 2.2 Triglycerides 112 Cholesterol 136 LDL Cholesterol, Calc 68 HDL Cholesterol 46 Vitamin B12 228 Folate 8.9 TSH 0.71 Free T4 1.35 Medications Medications Current Medications Acetaminophen (Acetaminophen 325 Mg Tablet) 975 mg PO Q8H PRN PRN Reason: pain mild Last Admin: 01/28/25 09:36 Dose: 975 mg Al Hydroxide/Mg Hydroxide (Magnesium Hydrox/Alum Hydrox 30 Ml Oral.Susp) 30 ml PO Q6H PRN PRN Reason: Heartburn/Nausea Aripiprazole (Aripiprazole 5 Mg Tablet) 5 mg PO DAILY [facility] Last Admin: 01/28/25 09:16 Dose: 5 mg Clonidine HCl (Clonidine Hcl 0.1 Mg Tablet) 0.1 mg PO Q4H PRN; Protocol PRN Reason: moderate anxiety Last Admin: 01/27/25 23:28 Dose: 0.1 mg Clonidine HCl (Clonidine Hcl 0.1 Mg Tablet) 0.1 mg PO BEDTIME CHERYL; Protocol Hydroxyzine HCl (Hydroxyzine Hcl 25 Mg Tablet) 25 mg PO Q6H PRN PRN Reason: Anxiety Last Admin: 01/28/25 09:38 Dose: 25 mg Ibuprofen (Ibuprofen 400 Mg Tablet) 400 mg PO Q8H CHERYL Last Admin: 01/28/25 05:00 Dose: 400 mg Lidocaine HCl (Lidocaine 4 % Cream Kit) 1 appl TOPICAL BID PRN; Protocol PRN Reason: genital herpes pain Last Admin: 01/28/25 09:35 Dose: 1 appl Magnesium Hydroxide (Milk Of Magnesia 30 Ml Oral.Susp) 30 ml PO DAILY PRN PRN Reason: Constipation Nicotine Polacrilex (Nicotine Polacrilex 2 Mg Gum) 4 mg BUCCAL Q2H PRN PRN Reason: Nicotine Cravings Phenazopyridine HCl (Phenazopyridine Hcl 200 Mg Tablet) 200 mg PO TID PRN PRN Reason: Pain, Mild (Pain Scale 1-3) Last Admin: 01/28/25 09:35 Dose: 200 mg Sertraline HCl (Sertraline Hcl 25 Mg Tablet) 75 mg PO DAILY [facility] Last Admin: 01/28/25 09:16 Dose: 75 mg Trazodone HCl (Trazodone Hcl 50 Mg Tablet) 50 mg PO BEDTIME CHERYL Last Admin: 01/27/25 20:34 Dose: 50 mg Trazodone HCl (Trazodone Hcl 50 Mg Tablet) 50 mg PO BEDTIME PRN PRN Reason: Insomnia Last Admin: 01/27/25 00:41 Dose: 50 mg Trazodone HCl (Trazodone Hcl 100 Mg Tablet) 100 mg PO BEDTIME CHERYL Last Admin: 01/27/25 20:35 Dose: 100 mg Valacyclovir HCl (Valacyclovir Hcl 1,000 Mg Tablet) 1,000 mg PO Q8H CHERYL Last Admin: 01/28/25 05:00 Dose: 1,000 mg Allergies Allergies Allergy/AdvReac Type Severity Reaction Status Date / Time No Known Allergies Allergy Verified 01/24/25 14:05 Assessment & Plan Assessment & Plan (1) Depression: Status: Acute Code(s): F32.A - Depression, unspecified (2) Anxiety: Status: Acute Code(s): F41.9 - Anxiety disorder, unspecified (3) Dysuria: Status: Acute Code(s): R30.0 - Dysuria Plan HPI: Pt is a 24 year old, , Amharic speaking in relationship male with hx of MDD, anxiety who is assessed by the CARE team at [facility] after he presents via EMS due to increased anxiety, depression and SI secondary to pain from a recent medical concern- testes. Per [facility], Pt was assessed by their crisis team earlier this afternoon at the request of [facility]'s clinical director (Maxi Hernandez). It was reported that Pt had not been sleeping for the past few weeks and was expressing that he was going to hurt himself in relation to experiencing physical pain. If I don't fix the pain, I'm going to hurt myself and I don't want to be here. CHD's disposition was for medical clearance. Pt reports a hx of struggling with Depression and Anxiety. He reports marijuana use. Formulation/clinical reasoning: increased in depression anxiety, making suicidal statements, poor sleep and appetite, in pain. unemployed and feeling hopeless and he is not enough for his chidlren. Hx of MDD, Anxiety, and anger issues. Given above information, patient would benefit in restrictive environment for safety, medication adjustment and refer patient back to OP psychiatric services for aftercare. He would be a good candidate for PHP. Hospital course: 01/26/25: start on Abilify 5mg daily Continue with Zoloft 50mg for depresion/anxiety. Will titrate up to therapeutic dose. Report dose just increased by OP provider a day or two ago Trazodone 50mg at HS with RP x1 PRN Valtrex 1,000mg Q8 hr. Need to verify end date. 01/27 Patient reports he is not suicidal and says that he was only suicidal because of the genital pain. News Assistant reviewed chart with him and explained that according to the chart as repairer typewriter reads it, the test for genital HSV was inconclusive however the ED provider thinks that it is quite likely he does have herpes. Patient continues to complain of pain on his penis shaft with the lesions are; he is taking valacyclovir. Discussed options for pain and he agrees to try lidocaine cream which is indicated. Discussed depression and he says he was started on Zoloft 1-2weeks ago by his PCP; agrees to increasing dose -patient asks how long he needs to stay on the unit, that he is not suicidal and wants to go home; repairer typewriter discussed treatment plan and patient is amenable to remain on the unit for now but would like to go home soon 01/28 pt reports moods is better and he feels much more calmed; no SI at all. Discussed treatment and patient benefitting from lidocaine cream but agrees to try ointment instead to see if it can help more. -patient was started on Abilify on admission but no indication for this so will discontinue Plan Patient on 15 minute checks for safety. Admitted to M5. CV. Increased Zoloft to 75 mg DC the Abilify; no indication Lidocaine ointment for pain from vesicles Work with treatment team to do collateral. Could be a good candidate for PHP for aftercare Patient educated on: diagnosis, medication risk/benefits and medical condition Informed Consent: understands Reason for continued inpatient stay Substantial Risk for: stable for discharge Time Spent With Patient Time: Total time managing care of this patient today ____ minutes.
[2025-01-28 20:00] VITALS: BP 123/63; PULSE 65; RESP 18; TEMP 36.8; O2SAT 96
--- NOTE | 2025-01-28 20:55 | PC.NURSE ---
Pt submitted a Three Day Notice on Wednesday01/28/2025 up on Wednesday01/31/2025.
[2025-01-29 08:00] VITALS: BP 100/64; PULSE 77; TEMP 36.7; O2SAT 97
--- NOTE | 2025-01-29 09:13 | HO.PM.IMCN ---
History of Present Illness Data of Consult Service Date: 01/29/25 Primary Care Provider: [facility] HPI Reason for consult: Medical consult 24-year-old male with a past medical history for anxiety and depression, presented to [facility] with increased depression suicide and suicidal ideation. Patient was recently seen in the emergency room for penile pain. They were unable to obtain a swab for HSV due to insufficient sample. Patient reports that he has had rash and irritation on his penis is beimg treated with clotrimazole outpatient. Patient also had recent STD testing that was negative, he reported some clear discharge from his penis, none at present. Review of lab work reveals normal lipids, normal TSH. No electrolyte imbalances. Urinalysis without evidence of infection. Tox screen positive for marijuana. He denies any medical concerns except for his questionable recent diagnosis of HSV. Patient denies ever having any blisters on his penis, reports that he had rash and irritation on the head of his penis but this is improved no longer red. Upon examination no vesicles noted no evidence of abraded blisters, no evidence of discharge, no evidence of any rash or open areas noted. Review of Systems Review of Systems: Denies any shortness of breath, chest pain, headaches, dysuria, abdominal pain or discomfort, nausea, vomiting or diarrhea. Denies fever or chills. [facility] Medical History (Updated 01/29/25 @ 14:41 by Brenda Guevara DNP) Herpes genitalia Anxiety Social History Household Members: Spouse Housing: Apartment Patient Tobacco Use Status: Never used Tobacco Smoked in Last 30 Days: No Use of substances other than those prescribed or required for medical reasons: Yes Substance Use Type: Marijuana Currently Displaying Signs/Symptoms of Drug Intoxication Withdrawal: No Advance Directives: No Advance Directives Information Provided: Yes Do you have thoughts of harming others: None Do you have a plan to hurt others: No Plan Recently lost weight without trying: No Eating poorly because of decreased appetite: No Nutrition Risks: No Nutritional Risk Poor oral hygiene: No service: No Sexual orientation: Straight/Heterosexual Meds Allergies Allergy/AdvReac Type Severity Reaction Status Date / Time No Known Allergies Allergy Verified 01/24/25 14:05 Active Medications: Current Medications Acetaminophen (Acetaminophen 325 Mg Tablet) 975 mg PO Q8H PRN PRN Reason: pain mild Last Admin: 01/28/25 09:36 Dose: 975 mg Al Hydroxide/Mg Hydroxide (Magnesium Hydrox/Alum Hydrox 30 Ml Oral.Susp) 30 ml PO Q6H PRN PRN Reason: Heartburn/Nausea Clonidine HCl (Clonidine Hcl 0.1 Mg Tablet) 0.1 mg PO Q4H PRN; Protocol PRN Reason: moderate anxiety Last Admin: 01/29/25 08:55 Dose: 0.1 mg Clonidine HCl (Clonidine Hcl 0.1 Mg Tablet) 0.1 mg PO BEDTIME CHERYL; Protocol Last Admin: 01/28/25 21:32 Dose: 0.1 mg Hydroxyzine HCl (Hydroxyzine Hcl 25 Mg Tablet) 25 mg PO Q6H PRN PRN Reason: Anxiety Last Admin: 01/29/25 05:19 Dose: 25 mg Ibuprofen (Ibuprofen 400 Mg Tablet) 400 mg PO Q8H CHERYL Last Admin: 01/29/25 03:58 Dose: 400 mg Lidocaine (Lidocaine 5 % Ointment 35 Gm) 1 appl TOPICAL Q6H PRN; Protocol PRN Reason: HSV pain Last Admin: 01/29/25 03:59 Dose: 1 appl Lidocaine HCl (Lidocaine 4 % Cream Kit) 1 appl TOPICAL BID PRN; Protocol On Hold: 01/28/25 10:59 PRN Reason: genital herpes pain Last Admin: 01/28/25 09:35 Dose: 1 appl Magnesium Hydroxide (Milk Of Magnesia 30 Ml Oral.Susp) 30 ml PO DAILY PRN PRN Reason: Constipation Nicotine Polacrilex (Nicotine Polacrilex 2 Mg Gum) 4 mg BUCCAL Q2H PRN PRN Reason: Nicotine Cravings Ondansetron HCl (Ondansetron Odt 4 Mg Tab.Rapdis) 4 mg TRANSLINGU Q6H PRN PRN Reason: Nausea and Vomiting Last Admin: 01/28/25 18:40 Dose: 4 mg Phenazopyridine HCl (Phenazopyridine Hcl 200 Mg Tablet) 200 mg PO TID PRN PRN Reason: Pain, Mild (Pain Scale 1-3) Last Admin: 01/28/25 21:34 Dose: 200 mg Sertraline HCl (Sertraline Hcl 25 Mg Tablet) 75 mg PO DAILY CHERYL Last Admin: 01/29/25 08:56 Dose: 75 mg Trazodone HCl (Trazodone Hcl 50 Mg Tablet) 50 mg PO BEDTIME [facility] Last Admin: 01/28/25 21:33 Dose: 50 mg Trazodone HCl (Trazodone Hcl 50 Mg Tablet) 50 mg PO BEDTIME PRN PRN Reason: Insomnia Last Admin: 01/27/25 00:41 Dose: 50 mg Trazodone HCl (Trazodone Hcl 100 Mg Tablet) 100 mg PO BEDTIME [facility] Last Admin: 01/28/25 21:33 Dose: 100 mg Valacyclovir HCl (Valacyclovir Hcl 1,000 Mg Tablet) 1,000 mg PO Q8H [facility] Last Admin: 01/29/25 03:58 Dose: 1,000 mg Home Medications ?Medication ?Instructions ?Recorded ?Confirmed ?Last Taken ?Type sertraline 50 mg tablet 50 mg PO DAILY 01/25/25 01/25/25 Unknown History trazodone 50 mg tablet 50 mg PO BEDTIME 01/25/25 01/25/25 Unknown History Physical Exam Vital Signs and Narrative: Vital Signs: Last Vital Signs Temp 98.2 F 01/28/25 20:00 Pulse 65 01/28/25 20:00 Resp 18 01/28/25 20:00 BP 123/63 01/28/25 20:00 Pulse Ox 96 01/28/25 20:00 O2 Del Method Room Air 01/28/25 20:00 BMI result Body Mass Index 21.0 Alert and oriented X3, able to give good history. Focused Neuro: CN II-X11 intact, no deficits, visual acuity intact EYES: PERRLA, EOM intact ENT: Hearing intact, lips moist, nares patent no epistaxis Cardiac: S1 S2 RRR, No ectopy Pulmonary: lungs clear to auscultation, No increased WOB. Abdominal: BS active in all 4 quadrants, no guarding or tenderness MSK: Strength 5/5 upper and lower extremities : Normal-appearing uncircumcised male genitalia, no rashes, no vesicles, no discharge noted. Extremities: No edema in lower extremities Psych: mood stable, Quiet and cooperative. Skin: Warm and dry, Intact Results Labs 01/24/25 16:34 01/24/25 16:34 Assessment and Plan (1) Depression: Status: Acute Plan 24-year-old male with past medical history of depression, anxiety presented to the ED with increased depression and anxiety surrounding recent medical diagnosis. Patient is admitted for stabilization. Depression/anxiety/suicidal ideation Treatment per psychiatric team Question genital herpes diagnosis No evidence of lesions, abraded areas, discharge noted on penis. No lymphadenopathy, no pain Normal male genitalia HSV swab does not offer any conclusive evidence of HSV infection No blood work obtained Patient using clotrimazole outpatient for rash which he reports has significantly improved. Advised patient that there is no definitive evidence that he has herpes, advised him to follow up as soon as possible if he develops another lesion so that it can be swabbed as this is the definitive way we can tell if he has herpes infection or not. Thank you for allowing me to participate in the care of this patient. Will follow with you, please notify medical provider with any changes in condition or concerns.
[2025-01-29 20:10] VITALS: BP 135/69; PULSE 81; RESP 18; TEMP 37.3; O2SAT 98
--- NOTE | 2025-01-29 22:27 | HO.PSYCHPN ---
Subjective Subjective Date of Service: 01/29/25 Reason For Visit: GENITAL PAIN/ MENTAL HEALTH DECLINE Interim History: Met with patient; discussed with team Patient reports he is feeling much better, mood is better and so is anxiety. Asks if he can discharge tomorrow. Mental Status Exam Mental Status Exam Narrative: Pt is alert and oriented; behavior is cooperative, friendly and calm; patient is not in distress; dressed in casual attire with unkempt hair but adequate hygiene; mood is described as good and affect congruent; eye contact appropriate; Speech is normal rate, volume and prosody and not pressured; no psychomotor agitation/retardation present; thought process is organized and goal directed; Thought content is on tx; otherwise pertinent to relevant topics and without any delusional content, paranoid ideations or grandiosity; denies any SI/HI. Denies AVH and there is no evidence of perceptual disturbance. Patients insight and judgment appear intact. Diagnostics Vital Signs (24Hr): Vital Signs - 24 hr 01/29/25 08:00 01/29/25 20:10 Temperature 98.1 F 99.1 F Pulse Rate 77 81 Respiratory Rate 18 Blood Pressure 100/64 135/69 Pulse Oximetry 97 98 Oxygen Delivery Method Room Air Room Air BMI result Body Mass Index 21.0 Labs 01/24/25 16:34 01/24/25 16:34 Medications Medications Current Medications Acetaminophen (Acetaminophen 325 Mg Tablet) 975 mg PO Q8H PRN PRN Reason: pain mild Last Admin: 01/28/25 09:36 Dose: 975 mg Al Hydroxide/Mg Hydroxide (Magnesium Hydrox/Alum Hydrox 30 Ml Oral.Susp) 30 ml PO Q6H PRN PRN Reason: Heartburn/Nausea Clonidine HCl (Clonidine Hcl 0.1 Mg Tablet) 0.1 mg PO Q4H PRN; Protocol PRN Reason: moderate anxiety Last Admin: 01/29/25 08:55 Dose: 0.1 mg Clonidine HCl (Clonidine Hcl 0.1 Mg Tablet) 0.1 mg PO BEDTIME CHERYL; Protocol Last Admin: 01/29/25 21:38 Dose: 0.1 mg Hydroxyzine HCl (Hydroxyzine Hcl 25 Mg Tablet) 25 mg PO Q6H PRN PRN Reason: Anxiety Last Admin: 01/29/25 21:38 Dose: 25 mg Ibuprofen (Ibuprofen 400 Mg Tablet) 400 mg PO Q8H CHERYL Last Admin: 01/29/25 21:11 Dose: 400 mg Lidocaine (Lidocaine 5 % Ointment 35 Gm) 1 appl TOPICAL Q6H PRN; Protocol PRN Reason: HSV pain Last Admin: 01/29/25 21:39 Dose: 1 appl Lidocaine HCl (Lidocaine 4 % Cream Kit) 1 appl TOPICAL BID PRN; Protocol On Hold: 01/28/25 10:59 PRN Reason: genital herpes pain Last Admin: 01/28/25 09:35 Dose: 1 appl Magnesium Hydroxide (Milk Of Magnesia 30 Ml Oral.Susp) 30 ml PO DAILY PRN PRN Reason: Constipation Nicotine Polacrilex (Nicotine Polacrilex 2 Mg Gum) 4 mg BUCCAL Q2H PRN PRN Reason: Nicotine Cravings Ondansetron HCl (Ondansetron Odt 4 Mg Tab.Rapdis) 4 mg TRANSLINGU Q6H PRN PRN Reason: Nausea and Vomiting Last Admin: 01/28/25 18:40 Dose: 4 mg Phenazopyridine HCl (Phenazopyridine Hcl 200 Mg Tablet) 200 mg PO TID PRN PRN Reason: Pain, Mild (Pain Scale 1-3) Last Admin: 01/29/25 21:39 Dose: 200 mg Sertraline HCl (Sertraline Hcl 25 Mg Tablet) [address] [facility] Last Admin: 01/29/25 08:56 Dose: 75 mg Trazodone HCl (Trazodone Hcl 50 Mg Tablet) [address] [facility] Last Admin: 01/29/25 21:38 Dose: 50 mg Trazodone HCl (Trazodone Hcl 50 Mg Tablet) 50 mg PO BEDTIME PRN PRN Reason: Insomnia Last Admin: 01/27/25 00:41 Dose: 50 mg Trazodone HCl (Trazodone Hcl 100 Mg Tablet) [address] [facility] Last Admin: 01/29/25 21:38 Dose: 100 mg Valacyclovir HCl (Valacyclovir Hcl 1,000 Mg Tablet) 1,[address] [facility] Last Admin: 01/29/25 21:10 Dose: 1,000 mg Allergies Allergies Allergy/AdvReac Type Severity Reaction Status Date / Time No Known Allergies Allergy Verified 01/24/25 14:05 Assessment & Plan Assessment & Plan (1) Depression: Status: Acute Code(s): F32.A - Depression, unspecified (2) Anxiety: Status: Acute Code(s): F41.9 - Anxiety disorder, unspecified (3) Dysuria: Status: Acute Code(s): R30.0 - Dysuria Plan HPI: Pt is a 24 year old, , Korean speaking in relationship male with hx of MDD, anxiety who is assessed by the CARE team at [facility] after he presents via EMS due to increased anxiety, depression and SI secondary to pain from a recent medical concern- testes. Per [facility], Pt was assessed by their crisis team earlier this afternoon at the request of [facility]'s clinical director (Maxi Hernandez). It was reported that Pt had not been sleeping for the past few weeks and was expressing that he was going to hurt himself in relation to experiencing physical pain. If I don't fix the pain, I'm going to hurt myself and I don't want to be here. [facility]D's disposition was for medical clearance. Pt reports a hx of struggling with Depression and Anxiety. He reports marijuana use. Formulation/clinical reasoning: increased in depression anxiety, making suicidal statements, poor sleep and appetite, in pain. unemployed and feeling hopeless and he is not enough for his chidlren. Hx of MDD, Anxiety, and anger issues. Given above information, patient would benefit in restrictive environment for safety, medication adjustment and refer patient back to OP psychiatric services for aftercare. He would be a good candidate for PHP. Hospital course: 01/26/25: start on Abilify 5mg daily Continue with Zoloft 50mg for depresion/anxiety. Will titrate up to therapeutic dose. Report dose just increased by OP provider a day or two ago Trazodone 50mg at HS with RP x1 PRN Valtrex 1,000mg Q8 hr. Need to verify end date. 01/27 Patient reports he is not suicidal and says that he was only suicidal because of the genital pain. [employer] reviewed chart with him and explained that according to the chart as service writer reads it, the test for genital HSV was inconclusive however the ED provider thinks that it is quite likely he does have herpes. Patient continues to complain of pain on his penis shaft with the lesions are; he is taking valacyclovir. Discussed options for pain and he agrees to try lidocaine cream which is indicated. Discussed depression and he says he was started on Zoloft 1-2weeks ago by his PCP; agrees to increasing dose -patient asks how long he needs to stay on the unit, that he is not suicidal and wants to go home; service writer discussed treatment plan and patient is amenable to remain on the unit for now but would like to go home soon 01/28 pt reports moods is better and he feels much more calmed; no SI at all. Discussed treatment and patient benefitting from lidocaine cream but agrees to try ointment instead to see if it can help more. -patient was started on Abilify on admission but no indication for this so will discontinue 01/29 patient remains feeling better, mood is much improved and anxiety diminished. Patient asking for discharge tomorrow. Says he is sleeping well and would like to continue with trazodone. Patient is back to baseline. He is not in imminent risk for harm to self or others and appropriate to return to the community for treatment Plan Patient on 15 minute checks for safety. Admitted to [facility]. CV. Increased Zoloft to 75 mg DC the Abilify; no indication Lidocaine ointment for pain from vesicles Work with treatment team to do collateral. Could be a good candidate for PHP for aftercare Patient educated on: diagnosis, medication risk/benefits and medical condition Informed Consent: understands Reason for continued inpatient stay Substantial Risk for: stable for discharge Time Spent With Patient Time: Total time managing care of this patient today ____ minutes.
[2025-01-30 08:00] VITALS: BP 120/75; PULSE 78; TEMP 36.6; O2SAT 95
--- NOTE | 2025-01-30 09:57 | PM.PSYDC ---
DS: Providers Provider Date of Service: 01/30/25 Date of admission: 01/26/25 15:00 Date of discharge: 01/30/25 Primary care physician: [facility] Attending physician on admission: Boubacar Mccallum Attending physician on discharge: Boubacar Mccallum DS: Diagnosis Discharge Diagnosis (1) Depression: Status: Acute (2) Anxiety: Status: Acute (3) Dysuria: Status: Acute DS: Medications Discharge Medications Home Medications: Previous Rx's ?Medication ?Instructions ?Recorded valacyclovir 1 gram tablet 1,000 mg PO TID 10 days #30 tabs 01/24/25 clonidine HCl 0.1 mg tablet See Rx Instructions .Route 01/30/25 .COMPLEX PRN moderate anxiety 30 days #90 tabs hydroxyzine HCl 25 mg tablet 25 mg PO Q8H PRN anxiety 30 days 01/30/25 #60 tabs lidocaine 5 % topical ointment 1 appl topical Q6H PRN HSV pain 30 01/30/25 days #30 grams phenazopyridine 200 mg tablet 200 mg PO TID PRN urinary pain 7 01/30/25 days #20 tabs sertraline 50 mg tablet 75 mg (1.5 x 50 mg) PO DAILY 30 01/30/25 days #45 tabs trazodone 100 mg tablet 100 mg PO BEDTIME PRN insomnia 30 01/30/25 days #30 tabs Mental Status Exam Mental Status Exam Narrative: Pt is alert and oriented; behavior is cooperative, friendly and calm; patient is not in distress; dressed in casual attire with unkempt hair but adequate hygiene; mood is described as good and affect congruent; eye contact appropriate; Speech is normal rate, volume and prosody and not pressured; no psychomotor agitation/retardation present; thought process is organized and goal directed; Thought content is on tx; otherwise pertinent to relevant topics and without any delusional content, paranoid ideations or grandiosity; denies any SI/HI. Denies AVH and there is no evidence of perceptual disturbance. Patients insight and judgment are intact. Data Data Completed and Pending Completed studies during hospitalization [Text1]: 01/24/25 01/27/25 16:34 08:31 WBC 12.0 H RBC 4.44 L Hgb 13.5 L Hct 39.2 L MCV 88.3 MCH 30.4 MCHC 34.4 RDW 12.8 Plt Count 232 MPV 9.4 Immature Gran % (Auto) 0.7 H Neut % (Auto) 79.9 H Lymph % (Auto) 14.2 L [place] % (Auto) 5.0 Eos % (Auto) 0.0 Baso % (Auto) 0.2 Lymph # (Auto) 1.7 [place] # (Auto) 0.6 Eos # (Auto) 0.0 Baso # (Auto) 0.0 Abs Immat Gran (auto) 0.08 H Absolute Neuts (auto) 9.6 H Absolute Nucleated RBC 0.000 Nucleated RBC % (auto) 0.0 Sodium 141 Potassium 3.9 Chloride 106 Carbon Dioxide 24 Anion Gap 15 BUN 7 L Creatinine 0.80 Estim Creat Clear Calc 114.5 Estimated GFR > 60 Random Glucose 98 Estimat Average Glucose 94 Hemoglobin A1c % 4.9 Calcium 9.8 Magnesium 2.2 Triglycerides 112 Cholesterol 136 LDL Cholesterol, Calc 68 HDL Cholesterol 46 Vitamin B12 228 Folate 8.9 TSH 0.71 Free T4 1.35 Urine Color Dark Yellow Urine Appearance Cloudy Urine pH 5.5 Ur Specific [place] >= 1.030 H Urine Protein 30 (1+) H Urine Glucose (UA) Negative Urine Ketones 40 Urine Blood Negative Urine Nitrite Negative Ur Leukocyte Esterase Negative Urine RBC 0-2 Urine WBC 0-5 Ur Squamous Epith Cells 6-10 Calcium Oxalate Crystal Present Urine Bacteria None Seen Hyaline Casts 11-20 Salicylates < 5.0 L Urine Opiates Screen Not Detected Ur Buprenorphine Scrn Not Detected Ur Oxycodone Screen Not Detected Urine Methadone Screen Not Detected Urine Fentanyl Screen Not Detected Acetaminophen < 3 Ur Barbiturates Screen Not Detected Ur Phencyclidine Scrn Not Detected Ur Amphetamines Screen Not Detected U Benzodiazepines Scrn Not Detected Urine Cocaine Screen Not Detected U Marijuana (THC) Screen POSITIVE H Ethyl Alcohol < 10 DS: Summary Hospital Course Hospital Course: HPI: Pt is a 24 year old, , Kinyarwanda speaking in relationship male with hx of MDD, anxiety who is assessed by the CARE team at [facility] after he presents via EMS due to increased anxiety, depression and SI secondary to pain from a recent medical concern- testes. Per [facility], Pt was assessed by their crisis team earlier this afternoon at the request of [facility]'s clinical director (Maxi Hernandez). It was reported that Pt had not been sleeping for the past few weeks and was expressing that he was going to hurt himself in relation to experiencing physical pain. If I don't fix the pain, I'm going to hurt myself and I don't want to be here. [facility]'s disposition was for medical clearance. Pt reports a hx of struggling with Depression and Anxiety. He reports marijuana use. Formulation/clinical reasoning: increased in depression anxiety, making suicidal statements, poor sleep and appetite, in pain. unemployed and feeling hopeless and he is not enough for his chidlren. Hx of MDD, Anxiety, and anger issues. Given above information, patient would benefit in restrictive environment for safety, medication adjustment and refer patient back to OP psychiatric services for aftercare. He would be a good candidate for PHP. Hospital course: 01/26/25: start on Abilify 5mg daily Continue with Zoloft 50mg for depresion/anxiety. Will titrate up to therapeutic dose. Report dose just increased by OP provider a day or two ago Trazodone 50mg at HS with RP x1 PRN Valtrex 1,000mg Q8 hr. Need to verify end date. 01/27 Patient reports he is not suicidal and says that he was only suicidal because of the genital pain. Shoer reviewed chart with him and explained that according to the chart as contract technical writer reads it, the test for genital HSV was inconclusive however the ED provider thinks that it is quite likely he does have herpes. Patient continues to complain of pain on his penis shaft with the lesions are; he is taking valacyclovir. Discussed options for pain and he agrees to try lidocaine cream which is indicated. Discussed depression and he says he was started on Zoloft 1-2weeks ago by his PCP; agrees to increasing dose -patient asks how long he needs to stay on the unit, that he is not suicidal and wants to go home; contract technical writer discussed treatment plan and patient is amenable to remain on the unit for now but would like to go home soon 01/28 pt reports moods is better and he feels much more calmed; no SI at all. Discussed treatment and patient benefitting from lidocaine cream but agrees to try ointment instead to see if it can help more. -patient was started on Abilify on admission but no indication for this so will discontinue patient remains feeling better, mood is much improved and anxiety diminished. Patient asking for discharge tomorrow. He has remained in good behavioral and impulse control and appropriate with staff and peers. Says he is sleeping well and would like to continue with trazodone. Patient is back to baseline. He is not in imminent risk for harm to self or others and appropriate to return to the community for treatment Medications: Increased Zoloft to 75 mg increased Trazodone 100mg qhs Started on Clonidine/hydroxyzine prn Lidocaine ointment for pain from vesicles Time spent discussing smoking cessation with patient: 3 to 10 minutes Status at Discharge Functional status at discharge: independent ambulation Overall status at discharge: patient is back to baseline Time Spent with Patient Time attestation: Total time managing care of this patient today __40__ minutes. Time spent: Greater than 30 minutes Specific discharge activities: met with patient; discussed with team; charting, scripts Discharge Plan Discharge Anticipated Discharge Date/Time: 01/30/25 11:00 Patient Disposition: Home, Self-Care Discharge Diagnosis: MDD, recurrent, moderate in full remission Referrals: Maxi David [Other] - 1 Week Referral Note: *Mr Hernandez has agreed to see you within 48 hours of discharge. Please call him immediately to connect. Medication Management [Other] - 02/02/25 7:30 pm Referral Note: Follow-up medication management appointment with Dr Brain Martinez (phone/telehealth). [facility] [Other] - 02/13/25 9:00 am Referral Note: You have been accepted into adult PHP offered by [facility]. This is a two-three week program, M-F from 9 am - 2:30 pm. Discharge Medications: New valacyclovir 1 gram tablet 1,000 mg PO TID 10 Days Qty: 30 0RF clonidine HCl 0.1 mg Tablet See Rx Instructions .ROUTE .COMPLEX PRN (Reason: moderate anxiety) 30 Days Qty: 90 0RF Protocol: Hold for SBP< HOLD for SBP < : 90 Rx Instructions: take 1 tab at bedtime; may take additional tabs, up to 2 a day, as needed for anxiety lidocaine 5 % Ointment 1 appl topical Q6H PRN (Reason: HSV pain) 30 Days Qty: 30 1RF Protocol: Apply to: Apply to: affected genital area phenazopyridine 200 mg Tablet 200 mg PO TID PRN (Reason: urinary pain) 7 Days Qty: 20 0RF Continued hydroxyzine HCl 25 mg tablet 25 mg PO Q8H PRN (Reason: anxiety) 30 Days Qty: 60 1RF Changed trazodone 100 mg tablet 100 mg PO BEDTIME PRN (Reason: insomnia) 30 Days Qty: 30 0RF sertraline 50 mg tablet 75 mg PO DAILY 30 Days Qty: 45 0RF Discharge Orders: Discharge Order (Routine); Ordered 01/30/25 Ordered By: Boubacar Mccallum Diet: Regular diet Activity on Discharge: As tolerated Stand Alone Forms: Patient Portal Discharge page, Community Support Print Language: Kinyarwanda Care Plan Goals: Maintain mood and safe behaviors Take medications as prescribed Practice coping skills Continue with outpatient providers and reach out to them as needed Health Concerns: Mood stability and behaviors Concern for HSV Plan of Treatment: Follow up with your PCP, psychiatric provider and other outpatient providers regarding above concerns Take medications as prescribed Assessment: Risk assessment at time of discharge:? Patient was interviewed prior to discharge and found to be fully oriented and without any SI or HI. Patient has improved insight and judgment and wants to continue treatment. Patient is not in imminent risk of harm to self or others and has a safety plan that includes presenting to the closest ER or calling 911 if feeling unsafe.? Patient has been observed closely by nursing and unit staff throughout admission; patient has not engaged in any behaviors that suggest dangerousness to self or others and has demonstrated appropriate behaviors and impulse control
== END 2025-01-30 11:47 | disposition home or self-care (01) | DRG 751 ==
LOC: HO.ED 01-26 12:33 → HO.PM5 01-26 15:01
PROVIDERS: Admitting Provider Clinical Nurse Specialist Psychiatric/Mental Health, Adult; Emergency Provider Student in an Organized Health Care Education/Training Program; Visit Provider Psychiatry & Neurology Psychiatry
DX: F33.1 Major depressive disorder, recurrent, moderate (principal); R45.851 Suicidal ideations; A60.01 Herpesviral infection of penis; Z79.899 Other long term (current) drug therapy
CPT/HCPCS: 36415; 74176; 76775; 80048; 80061; 80143; 80179; 80307; 81001; 82607; 82746; 83036; 83735; 84439; 84443; 85025; 99285; S9485

== ENCOUNTER → 2025-01-24 17:22 | Outpatient (BNV) | payer MEDICAID, SELFPAY | PROVIDERS: Emergency Provider Student in an Organized Health Care Education/Training Program; Visit Provider Student in an Organized Health Care Education/Training Program | DX: N20.0 Calculus of kidney (principal); R30.9 Painful micturition, unspecified | CPT/HCPCS: 74176; 76775 ==

== ENCOUNTER → 2025-01-26 15:00 | Outpatient (BNV) | payer OTHER, SELFPAY | PROVIDERS: Admitting Provider Clinical Nurse Specialist Psychiatric/Mental Health, Adult; Emergency Provider Student in an Organized Health Care Education/Training Program; Visit Provider Nurse Practitioner Psychiatric/Mental Health | DX: F32.2 Major depressive disorder, single episode, severe without psychotic features (principal); F41.9 Anxiety disorder, unspecified; R30.0 Dysuria; A60.00 Herpesviral infection of urogenital system, unspecified | CPT/HCPCS: 99232 ==

== ENCOUNTER → 2025-01-26 15:00 | Outpatient (BNV) | payer MEDICAID, SELFPAY | PROVIDERS: Admitting Provider Clinical Nurse Specialist Psychiatric/Mental Health, Adult; Emergency Provider Student in an Organized Health Care Education/Training Program; Visit Provider Nurse Practitioner Family | DX: Z02.2 Encounter for examination for admission to residential institution (principal) | CPT/HCPCS: 99499 ==